=== PATIENT | male | born 1955 | race Caucasian/White ===

== ENCOUNTER → 2016-05-28 | Outpatient (CLI) | payer OTHER ==
[~2016-05-28] MED LIST: ALBU17IN INH; CYCL10TA PO; CYCL10TA3 PO; GABA-283 PO; HYDR7.5T38 PO; IBUP200T2 PO; IBUP80TA PO; IBUPPOW25 PO; LIDO1OIN2 TOP; MULTTAB23 PO; NASA0.057; OXYC1TAB23 PO; ROBA750T4 PO
== END ==
LOC: M PAIN 10:20
PROVIDERS: ATTEND Nurse Practitioner Family
DX: Z53.8 Procedure and treatment not carried out for other reasons (principal)

== ENCOUNTER → 2016-06-13 | Outpatient (CLI) | payer OTHER ==
--- NOTE | 2016-07-03 01:29 | ECWPNPC ---
PATIENT NAME: MARVIN ROSE : 1955 GENDER: MALE VISIT DATE: 06/13/2016 DISCHARGE DATE: 06/13/16 1221 VISIT LOCKED DATE TIME: PHYSICIAN: ECHO GARCIA RESOURCE: ECHO GARCIA REASON FOR APPOINTMENT 1. FOLLOW UP HISTORY OF PRESENT ILLNESS HISTORY OF PRESENT ILLNESS: PAIN THE PATIENT DESCRIBES THE PAIN... FALL RISK SCREENING: SCREENING :NO FALLS IN THE PAST YEAR TODAY'S VISIT: NOTES: RATES PAIN TODAY 8/10. PAIN CENTERD IN LOW BACK WITH RADIATION INTO BOTH LEGS. SOME PAIN INTO LEFT LEG FROM LATERAL PORTION OF CALF. IS HAVING NEW PAIN ON RIGHT SIDE... CURRENT MEDICATIONS TAKING MULTI FOR HIM TABLET ORALLY DAILY TAKING GABAPENTIN 300 MG CAPSULE 1 CAPSULE ORALLY TWO TIMES DAILY TAKING IBUPROFEN 200 MG TABLET 1 TABLET NEEDED ORALLY EVERY 8 HOURS WITH FOOD PRN PAIN TAKING OXYCODONE-ACETAMINOPHEN 5-325 MG TABLET 1 TABLET NEEDED ORALLY EVERY 4- 6 HRS MDD6 TAKING ALBUTEROL SULFATE HFA 108 (90 BASE) MCG/ACT AEROSOL SOLUTION 2 PUFFS NEEDED INHALATION EVERY 4 HRS MEDICATION LIST REVIEWED AND RECONCILED WITH THE PATIENT PAST MEDICAL HISTORY BELLS PALSY HX ALLERGIES N.K.D.A. SOCIAL HISTORY GENERAL: TOBACCO USE ARE YOU A:NONSMOKER LEARNING BARRIERS / SPECIAL NEEDS ORIENTED TO PLAN OF CARE: PATIENT, PAIN MANAGEMENT PATIENT, ORIENTED TO PLAN OF CARE: PATIENT, PAIN MANAGEMENT PATIENT. NEW PATIENT PAIN DIARY TODAY'S VISITNOTES FROM 0-10, WHAT LEVEL IS YOUR PAIN TODAY?0 PAIN CLINIC PFS, CLERGY, PUBLIC HEALTH REFERRALS PFS REFERRAL NEEDED?NO CLERGY REFERRAL NEEDED?NO PUBLIC HEALTH REFERRAL NEEDED?NO WAS THE PROVIDER NOTIFIED OF ANY PERTINENT INFO?NO PFS REFERRAL NEEDED?NO CLERGY REFERRAL NEEDED?NO PUBLIC HEALTH REFERRAL NEEDED?NO WAS THE PROVIDER NOTIFIED OF ANY PERTINENT INFO?NO REVIEW OF SYSTEMS CONSTITUTIONAL: ANY CHANGE IN YOUR MEDICAL CONDITION? NO . CHILLS NO . FEVER NO . INFECTION: DO YOU HAVE NEW INFECTIONS? NO . DO YOU HAVE HISTORY OF MRSA? NO . MUSCULOSKELETAL: ANY NEW PATTERNS OF PAIN OR NUMBNESS? YES, RIGHT LOW BACK AND DOWN THE RIGHT LEG. JUST LIKE LEFT SIDE WAS. . GASTROENTEROLOGY: ANY NEW CHANGE IN BOWEL CONTROL? NO . GENITOURINARY: ANY NEW CHANGE IN BLADDER CONTROL? NO . IS THERE A CHANCE YOU COULD BE ? NO . HEMATOLOGY/LYMPH: DO YOU TAKE ANY BLOOD THINNERS? (FOR EXAMPLE- COUMADIN, PLAVIX, AGGRENOX, PLATEL, PRADAXA, OR XARELTO) NO . WHEN WAS YOUR LAST DOSE? DATE: TIME: . NEUROLOGY: HAVE YOU FALLEN IN THE PAST 6 MONTHS? NO . ANY NEW EXTREMITY NUMBNESS OR WEAKNESS? NO . CARDIOLOGY: DO YOU HAVE A PACEMAKER OR DEFIBRILLATOR? NO . RESPIRATORY: HAVE YOU BEEN SICK IN THE PAST WEEK? WAS AT ER IN MAY 18 FOR RESPIRATORY DISTRESS FELT TO BE SECONDARY TO [place]OD[place]. . FEVER NO . FLU LIKE SYMPTOMS? NO . COUGH NO . INTEGUMENTARY: DO YOU HAVE ANY RASHES OR OPEN SORES? NO . ALLERGIC/IMMUNO: ARE YOU ALLERGIC TO SHELLFISH OR IV DYE? NO . ANY NEW ALLERGIES? NO . PSYCHIATRIC: DO YOU HAVE THOUGHTS OF HURTING YOURSELF OR SOMEONE ELSE? NO . ARE YOU ABUSED, NEGLECTED, OR IN AN UNSAFE ENVIRONMENT? NO . ENDOCRINOLOGY: ARE YOU DIABETIC? NO . OTHER: DO YOU NEED ANY PRESCRIPTIONS? NO . IF YES, PLEASE LIST: ____ . ANY NEW PROBLEMS WITH YOUR MEDICATIONS? NO . WHEN DID YOU LAST EAT? ____ . WHEN DID YOU LAST DRINK? ____ . WHAT DID YOU LAST DRINK? ____ . NAME OF PERSON DRIVING YOU HOME? ____ . DO YOU HAVE ANY OTHER QUESTIONS OR CONCERNS NO . REVIEWED BY: PROVIDER: ECHO MURRAY . VITAL SIGNS WT 200 LBS, HT 73 IN, BMI 26.38 INDEX, BP 130/72 MM HG, HR 87 /MIN, RR 18 /MIN, TEMP 97.1 F, OXYGEN SAT % 975, NA INITIALS SC 1:47, REVIEWED BY: CORRY. EXAMINATION GENERAL EXAMINATION: PSYCHALERT , ORIENTED X 3 , TALKATIVE. LOUD VOICE. LUNGS:CLEAR TO AUSCULTATION BILATERALLY. HEART:HEART RATE REGULAR. MUSCULOSKELETAL:MUSCLE STRENGTH TESTING 5/5 BILATERAL LOWER EXTREMITIES., PALPATION: POSITIVE FOR PAIN OVER L/S SPINE. POSITIVE FOR PAIN OVER L/S PARSPINALS. POINT TENDERNESS PRESENT OVER LEFT GREATER THAN RIGHT PARASPINOUS MUSCLES. SLOW TO RISE TO STANDING POSITION. POSTURE STOOPED. GAIT SLOW, NON ANTALGIC.. 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 WALK DAILY. BE SAFE,LUMBAR EPIDURAL INJECTION: YOUR PROCEDURE MATERIAL WAS PRINTEDPRINTED MATERIAL ON CYCLOBENZAPRINE GIVEN TO PATIENT. PROCEDURE CODES FA211 ESTABILISHED PATIENT [facility] FACILITY CHARGE DISPOSITION & COMMUNICATION FOLLOW UP AFTER INJECTION (REASON: CHECK AUTH FOR LESB) ELECTRONICALLY SIGNED BY MIKAELA MCMAHON ON 07/02/2016 AT 12:12 PM EST DISCLAIMER : THIS IS A VISIT SUMMARY EXTRACTED FROM THE [facility] CHART. IT IS NOT A COPY OF THE [employer] PROGRESS NOTE. MTDLars
== END ==
LOC: M PAIN 11:00
PROVIDERS: ATTEND Nurse Practitioner Family
DX: M51.26 Other intervertebral disc displacement, lumbar region (principal); M54.17 Radiculopathy, lumbosacral region; Z79.899 Other long term (current) drug therapy; Z79.891 Long term (current) use of opiate analgesic

== ENCOUNTER → 2016-07-31 | Outpatient (CLI) | payer OTHER ==
[~2016-07-31] MED LIST changes: +ISOVUE-M 300 61% 15ML VIAL (Q9967) As Ordered ONE; +LIDOCAINE 1% SDV INJ 30 ML VIAL As Ordered ONE; +diazePAM 5 MG TAB As Ordered ONE; +methylPREDNISolone SUSP 40 MG/ML (DEPO-medrol) VIAL (J1030) As Ordered ONE; +oxyCODONE 5MG TAB As Ordered ONE
--- NOTE | 2016-07-31 16:24 | REP ---
FLUOROSCOPIC GUIDED SPINAL INJECTION: The films were reviewed with Dr. Lewis. The patient has a history of low back pain and left leg pain. The portable C-ARM was provided in the OR by Dr. Cano for fluoroscopic guidance. 2 intraoperative fluoroscopic spot films were obtained for needle placement verification for lumbar epidural injection. The films are on the PACS system and are available for review. 11 seconds of fluoroscopic time was utilized for this procedure. Reviewed by DUNG Marie 07/31/2016 04:29 PEdited and Signed by Shahid Lewis MD 08/01/2016 01:15 P
--- NOTE | 2016-08-05 02:12 | ECWPNPC ---
PATIENT NAME: MARVIN ROSE : 1955 GENDER: MALE VISIT DATE: 07/31/2016 DISCHARGE DATE: 07/31/16 1443 VISIT LOCKED DATE TIME: PHYSICIAN: FELI SHELBY RESOURCE: FELI SHELBY REASON FOR APPOINTMENT 1. LESB HISTORY OF PRESENT ILLNESS HISTORY OF PRESENT ILLNESS: PAIN THE PATIENT DESCRIBES THE PAIN... FALL RISK SCREENING: SCREENING :NO FALLS IN THE PAST YEAR CURRENT MEDICATIONS TAKING MULTI FOR HIM TABLET ORALLY DAILY, NOTES: 07-30-16 1400 TAKING IBUPROFEN 200 MG TABLET 1 TABLET NEEDED ORALLY EVERY 8 HOURS WITH FOOD PRN PAIN, NOTES: 07-30-162199 TAKING ALBUTEROL SULFATE HFA 108 (90 BASE) MCG/ACT AEROSOL SOLUTION 2 PUFFS NEEDED INHALATION EVERY 4 HRS, NOTES: 07-09-16 1800 TAKING GABAPENTIN 300 MG CAPSULE 1 CAPSULE ORALLY THREE TIMES DAILY, NOTES: 07-30-162199 TAKING CYCLOBENZAPRINE HCL 10 MG TABLET 1 TABLET ORALLY THREE TIMES A DAY, NOTES: 07-30-161999 TAKING OXYCODONE-ACETAMINOPHEN 5-325 MG TABLET 1 TABLET NEEDED ORALLY EVERY 4- 6 HRS MDD6, NOTES: 07-30-162199 MEDICATION LIST REVIEWED AND RECONCILED WITH THE PATIENT PAST MEDICAL HISTORY BELLS PALSY HX ALLERGIES N.K.D.A. SURGICAL HISTORY LEFT SHOULDER REPAIR RIGHT HAND CARPAL TUNNEL AND REPAIR OF FX RIGHT KNEE SCOPE LIPOMA REMOVAL OF LOW BACK REVIEW OF SYSTEMS CONSTITUTIONAL: ANY CHANGE IN YOUR MEDICAL CONDITION? NO . CHILLS NO . FEVER NO . INFECTION: DO YOU HAVE NEW INFECTIONS? NO . DO YOU HAVE HISTORY OF MRSA? NO . MUSCULOSKELETAL: ANY NEW PATTERNS OF PAIN OR NUMBNESS? NO . GASTROENTEROLOGY: ANY NEW CHANGE IN BOWEL CONTROL? NO . GENITOURINARY: ANY NEW CHANGE IN BLADDER CONTROL? NO . IS THERE A CHANCE YOU COULD BE ? NO . HEMATOLOGY/LYMPH: DO YOU TAKE ANY BLOOD THINNERS? (FOR EXAMPLE- COUMADIN, PLAVIX, AGGRENOX, PLATEL, PRADAXA, OR XARELTO) NO . WHEN WAS YOUR LAST DOSE? DATE: TIME: . NEUROLOGY: HAVE YOU FALLEN IN THE PAST 6 MONTHS? YES . ANY NEW EXTREMITY NUMBNESS OR WEAKNESS? NO . CARDIOLOGY: DO YOU HAVE A PACEMAKER OR DEFIBRILLATOR? NO . RESPIRATORY: HAVE YOU BEEN SICK IN THE PAST WEEK? NO . FEVER NO . FLU LIKE SYMPTOMS? NO . COUGH NO . INTEGUMENTARY: DO YOU HAVE ANY RASHES OR OPEN SORES? NO . ALLERGIC/IMMUNO: ARE YOU ALLERGIC TO SHELLFISH OR IV DYE? NO . ANY NEW ALLERGIES? NO . PSYCHIATRIC: DO YOU HAVE THOUGHTS OF HURTING YOURSELF OR SOMEONE ELSE? NO . ARE YOU ABUSED, NEGLECTED, OR IN AN UNSAFE ENVIRONMENT? NO . ENDOCRINOLOGY: ARE YOU DIABETIC? NO . OTHER: DO YOU NEED ANY PRESCRIPTIONS? NO . IF YES, PLEASE LIST: ____ . ANY NEW PROBLEMS WITH YOUR MEDICATIONS? NO . WHEN DID YOU LAST EAT? ____0300 217 . WHEN DID YOU LAST DRINK? ____0300 . WHAT DID YOU LAST DRINK? ____COFFEE . NAME OF PERSON DRIVING YOU HOME? ____TOM CAPTAIN MEDICATID INSPECTOR COLD WORKING . DO YOU HAVE ANY OTHER QUESTIONS OR CONCERNS NO . REVIEWED BY: PROVIDER: . VITAL SIGNS WT 200.2 LBS, HT 73 IN, BMI 26.41 INDEX, BP 153/67 MM HG, HR 94 /MIN, RR 16 /MIN, TEMP 98.3 F, OXYGEN SAT % 95, NA INITIALS TL 1108, REVIEWED BY: KG. ASSESSMENTS INTERVERTEBRAL DISC DISORDERS WITH RADICULOPATHY, LUMBOSACRAL REGION - M51.17 (PRIMARY) PROCEDURES PRE PROCEDURE DIAGNOSIS LUMBOSACRAL RADICULOPATHY, LUMBOSACRAL DISC DISORDER WITH RADICULOPATHY, LUMBOSACRAL SPINAL STENOSIS POST PROCEDURE DIAGNOSIS LUMBOSACRAL DISC DISORDER WITH RADICULOPATHY , LUMBOSACRAL RADICULOPATHY , LUMBOSACRAL SPINAL STENOSIS PROCEDURE L5-S1 EPIDURAL STEROID INJECTION UNDER FLUOROSCOPIC GUIDANCE SURGEON DR. FELI SHELBY CLINICAL TECHNOLOGIST NONE ANESTHESIA LOCAL PRE PROCEDURE NOTE THE PATIENT HAS A HISTORY OF CHRONIC LOW BACK PAIN. I EVALUATE THE PATIENT AND REVIEWED THE CHART. I WENT OVER THE RISKS, ALTERNATIVES, AND BENEFITS ASSOCIATED WITH THIS PROCEDURE. THE PATIENT WOULD LIKE TO PROCEED AND GIVE CONSENT TO PERFORMED THE PROCEDURE. THE PATIENT DENIES UNEXPLAINABLE WEIGHT LOSS, FEVER, CHILLS, OR NEW CHANGES IN URINARY OR BOWEL CONTROL. DESCRIPTION OF PROCEDURE THE PATIENT WAS BROUGHT TO THE PROCEDURE ROOM AND PLACED IN THE PRONE POSITION. THE LUMBOSACRAL AREA WAS CLEANED WITH BETADINE SOLUTION AND DRAPED ASEPTICALLY. THE PROCEDURE WAS DONE UNDER STERILE CONDITIONS. I CHECKED LATERALITY AND THE LEVEL WHERE THE PROCEDURE WAS GOING TO BE PERFORMED WITH THE PATIENT AND THE SUPPORTING STAFF AT THE MOMENT OF THE TIME OUT IN THE PROCEDURE ROOM. UNDER FLUOROSCOPIC GUIDANCE, THE TARGET POINT WAS SELECTED AT THE INTERLAMINAR LEVEL OF L5-S1. LIDOCAINE WAS USED TO NUMB THE SKIN AND THE SUBCUTANEOUS TISSUE BELOW IT. EPIDURAL TUOHY NEEDLE, 17-GAUGE, WAS ADVANCED UNDER FLUOROSCOPIC GUIDANCE AND FOLLOWING PATIENT FEEDBACK UNTIL THE EPIDURAL SPACE WAS REACHED, 7 CM DEEP INTO THE SKIN BY THE LOSS OF RESISTANCE TECHNIQUE. ISOVUE M DYE 30%, 0.25 ML, WAS INJECTED SHOWING ADEQUATE SPREAD OF THE DYE. THEN, A SOLUTION OF 3 ML OF NORMAL SALINE WITH DEPO-MEDROL 60 MG WAS INJECTED SLOWLY FOLLOWING PATIENT FEEDBACK. THERE WAS NO EVIDENCE OF BLOOD, PARESTHESIA OR CEREBROSPINAL FLUID DURING THE PROCEDURE. THE PATIENT WAS SENT TO THE RECOVERY ROOM. THE PATIENT WAS MOVING THE EXTREMITIES AND DOING WELL. THERE WAS NO COMPLICATION DURING THE PROCEDURE. FLUOROSCOPY TIME WAS 11 SECONDS. POST PROCEDURE NOTE THE PATIENT WILL BE SEEN IN A FOLLOW UP IN THE NEXT FEW WEEKS. INSTRUCTIONS WERE GIVEN, QUESTIONS WERE ANSWERED, AND THE PATIENT EXPRESSED UNDERSTANDING AND AGREES WITH THE PLAN. I, YUE AGOSTO, DOCUMENTED THE ABOVE INFORMATION ACTING A SCRIBE FOR DR. SHELBY. I HAVE REVIEWED THE ABOVE DOCUMENT, WRITTEN BY YUE AGOSTO SCRIBE AND I VERIFY THAT IT IS [facility] FLUORO GUIDE SPINE INJECTION (PAIN)[id number] PROCEDURE CODES 90619 LUMBAR/SACRAL W/ IMAGING 6045F RADXPS IN END [id number] PXD DISPOSITION & COMMUNICATION FOLLOW UP 3 WEEKS ELECTRONICALLY SIGNED BY FELI SHELBY MD ON 08/04/2016 AT 05:51 PM EDT DISCLAIMER : THIS IS A VISIT SUMMARY EXTRACTED FROM THE [employer] CHART. IT IS NOT A COPY OF THE [employer] PROGRESS NOTE. SAMYD
== END ==
LOC: M PAIN 11:00
PROVIDERS: ATTEND Anesthesiology
DX: G89.29 Other chronic pain (principal); M51.17 Intervertebral disc disorders with radiculopathy, lumbosacral region; M48.07 Spinal stenosis, lumbosacral region; Z79.1 Long term (current) use of non-steroidal anti-inflammatories (NSAID); Z79.899 Other long term (current) drug therapy
CPT/HCPCS: 62323; J1030; Q9967

== ENCOUNTER → 2016-10-09 | Outpatient (CLI) | payer OTHER ==
[~2016-10-09] MED LIST changes: -ISOVUE-M 300 61% 15ML VIAL (Q9967) As Ordered ONE; -LIDOCAINE 1% SDV INJ 30 ML VIAL As Ordered ONE; -diazePAM 5 MG TAB As Ordered ONE; -methylPREDNISolone SUSP 40 MG/ML (DEPO-medrol) VIAL (J1030) As Ordered ONE; -oxyCODONE 5MG TAB As Ordered ONE
--- NOTE | 2016-10-29 01:03 | ECWPNPC ---
PATIENT NAME: MARVIN ROSE : 1955 GENDER: MALE VISIT DATE: 10/09/2016 DISCHARGE DATE: 10/09/16 1153 VISIT LOCKED DATE TIME: PHYSICIAN: ECHO GARCIA RESOURCE: ECHO GARCIA REASON FOR APPOINTMENT 1. BACK HISTORY OF PRESENT ILLNESS HISTORY OF PRESENT ILLNESS: PAIN THE PATIENT DESCRIBES THE PAIN... FALL RISK SCREENING: SCREENING :NO FALLS IN THE PAST YEAR TODAY'S VISIT: NOTES: RATES PAIN 8/10. STARTED JUST RECENTLY HAVING RETURN OF SHOOTING PAIN IN LEFT LEG. THIS WAS MUCH IMPROVED AFTER L5-S1 ON 07/31/16. STATES PAIN WAS 4/10 UNTIL STARTED WORK PROJECT AND PAIN HAS ICREASED FROM ACTIVITY TO 810. . CURRENT MEDICATIONS TAKING MULTI FOR HIM TABLET ORALLY DAILY, NOTES: 07-30-16 1400 TAKING IBUPROFEN 200 MG TABLET 1 TABLET NEEDED ORALLY EVERY 8 HOURS WITH FOOD PRN PAIN, NOTES: 07-30-162199 TAKING ALBUTEROL SULFATE HFA 108 (90 BASE) MCG/ACT AEROSOL SOLUTION 2 PUFFS NEEDED INHALATION EVERY 4 HRS, NOTES: 07-09-16 1800 TAKING GABAPENTIN 300 MG CAPSULE 1 CAPSULE ORALLY THREE TIMES DAILY, NOTES: 07-30-162199 TAKING CYCLOBENZAPRINE HCL 10 MG TABLET 1 TABLET ORALLY THREE TIMES A DAY, NOTES: 07-30-161999 TAKING OXYCODONE-ACETAMINOPHEN 5-325 MG TABLET 1 TABLET NEEDED ORALLY EVERY 4- 6 HRS MDD6 MEDICATION LIST REVIEWED AND RECONCILED WITH THE PATIENT PAST MEDICAL HISTORY BELLS PALSY HX ALLERGIES N.K.D.A. REVIEW OF SYSTEMS CONSTITUTIONAL: ANY CHANGE IN YOUR MEDICAL CONDITION? NO . CHILLS NO . FEVER NO . INFECTION: DO YOU HAVE NEW INFECTIONS? NO . DO YOU HAVE HISTORY OF MRSA? NO . MUSCULOSKELETAL: ANY NEW PATTERNS OF PAIN OR NUMBNESS? YES PT HADL5-S1 LESI 07/31, REPORTS PAIN A ZERO X 24 HOURS, THEN WORSENED X 4 DAYS, THEN IMPROVED AGAIN WITH RESULTS STILL BEING FELT. PT STATES HE FEELS A GENERALIZED IMPROVEMENT, WITH BETTER SLEEP, BETTER MOBILITY, BETTER TOLERANCE OF ACTIVITY. PT REPORTS HIS RIGHT SHOULDER IS A NEW PAIN . GASTROENTEROLOGY: ANY NEW CHANGE IN BOWEL CONTROL? NO . GENITOURINARY: ANY NEW CHANGE IN BLADDER CONTROL? NO . IS THERE A CHANCE YOU COULD BE ? NO . HEMATOLOGY/LYMPH: DO YOU TAKE ANY BLOOD THINNERS? (FOR EXAMPLE- COUMADIN, PLAVIX, AGGRENOX, PLATEL, PRADAXA, OR XARELTO) NO . WHEN WAS YOUR LAST DOSE? DATE: TIME: . NEUROLOGY: HAVE YOU FALLEN IN THE PAST 6 MONTHS? NO . ANY NEW EXTREMITY NUMBNESS OR WEAKNESS? NO . CARDIOLOGY: DO YOU HAVE A PACEMAKER OR DEFIBRILLATOR? NO . RESPIRATORY: HAVE YOU BEEN SICK IN THE PAST WEEK? NO . FEVER NO . FLU LIKE SYMPTOMS? NO . COUGH NO . INTEGUMENTARY: DO YOU HAVE ANY RASHES OR OPEN SORES? NO . ALLERGIC/IMMUNO: ARE YOU ALLERGIC TO SHELLFISH OR IV DYE? NO . ANY NEW ALLERGIES? NO . PSYCHIATRIC: DO YOU HAVE THOUGHTS OF HURTING YOURSELF OR SOMEONE ELSE? NO . ARE YOU ABUSED, NEGLECTED, OR IN AN UNSAFE ENVIRONMENT? NO . ENDOCRINOLOGY: ARE YOU DIABETIC? NO . OTHER: DO YOU NEED ANY PRESCRIPTIONS? NO . IF YES, PLEASE LIST: ____ . ANY NEW PROBLEMS WITH YOUR MEDICATIONS? NO . WHEN DID YOU LAST EAT? ____ . WHEN DID YOU LAST DRINK? ____ . WHAT DID YOU LAST DRINK? ____ . NAME OF PERSON DRIVING YOU HOME? ____ . DO YOU HAVE ANY OTHER QUESTIONS OR CONCERNS NO . REVIEWED BY: PROVIDER: ECHO MURRAY . VITAL SIGNS WT 192.5 LBS, HT 73 IN, BMI 25.39 INDEX, BP 144/82 MM HG, HR 71 /MIN, RR 16 /MIN, TEMP 97.5 F, OXYGEN SAT % 95%, NA INITIALS SC 11:24. EXAMINATION GENERAL EXAMINATION: PSYCHALERT , ORIENTED X 3 , TALKATIVE. LOUD VOICE. LUNGS:CLEAR TO AUSCULTATION BILATERALLY. HEART:HEART RATE REGULAR. MUSCULOSKELETAL:MUSCLE STRENGTH TESTING 5/5 BILATERAL LOWER EXTREMITIES., . POINT TENDERNESS PRESENT OVER LEFT GREATER THAN RIGHT PARASPINOUS MUSCLES. SLOW TO RISE TO STANDING POSITION. POSTURE STOOPED. GAIT SLOW, NON ANTALGIC.. ASSESSMENTS LUMBAR DISC DISPLACEMENT WITHOUT MYELOPATHY - M51.26 (PRIMARY) LUMBAR RADICULOPATHY - M54.16 SACROILIITIS - M46.1 CHRONIC PRESCRIPTION OPIATE USE - Z79.891 TREATMENT LUMBAR DISC DISPLACEMENT WITHOUT MYELOPATHY NOTES: CONTINUE CURRENT MEDS NEEDED. STRETCH AND WALK TOLERATED. PROCEDURE CODES FA211 ESTABILISHED PATIENT [facility] CHARGE DISPOSITION & COMMUNICATION FOLLOW UP 2-3 MONTHS ELECTRONICALLY SIGNED BY MIKAELA MCMAHON ON 10/28/2016 AT 01:47 PM EDT DISCLAIMER : THIS IS A VISIT SUMMARY EXTRACTED FROM THE [employer] CHART. IT IS NOT A COPY OF THE [employer] PROGRESS NOTE. CALI
== END ==
LOC: M PAIN 10:40
PROVIDERS: ATTEND Nurse Practitioner Family
DX: G89.29 Other chronic pain (principal); M51.26 Other intervertebral disc displacement, lumbar region; M54.16 Radiculopathy, lumbar region; M46.1 Sacroiliitis, not elsewhere classified; Z86.69 Personal history of other diseases of the nervous system and sense organs; Z79.899 Other long term (current) drug therapy

== ENCOUNTER → 2016-12-08 | Outpatient (CLI) | payer OTHER ==
[~2016-12-08] MED LIST changes: +NASA0.0517; -NASA0.057
--- NOTE | 2016-12-28 00:31 | ECWPNPC ---
PATIENT NAME: MARVIN ROSE : 1955 GENDER: MALE VISIT DATE: 12/08/2016 DISCHARGE DATE: 12/08/16 1105 VISIT LOCKED DATE TIME: PHYSICIAN: ECHO GARCIA RESOURCE: ECHO GARCIA HISTORY OF PRESENT ILLNESS HISTORY OF PRESENT ILLNESS: PAIN THE PATIENT DESCRIBES THE PAIN... FALL RISK SCREENING: SCREENING :NO FALLS IN THE PAST YEAR TODAY'S VISIT: NOTES: RATES PAIN TODAY 8/10. PAIN IS CENTERED OVER LOW BACK WITH RADIATION BOTH BUTTUCKS. STATES HAD INJURY WHEN HE LIFTED HIS GENERATOR. .STATES THAT HE DROPPED SEVERAL OF HIS PAIN PILLS AND HAS TAKEN SOME EXTRA DUE TO PAIN. DESCRIBES PAIN SHARP, STABBING AND SHOOTING. IS NOTING PAIN AND NUMBNESS INTO LOWER LEGS AND FEET.. CURRENT MEDICATIONS TAKING MULTI FOR HIM TABLET ORALLY DAILY TAKING IBUPROFEN 200 MG TABLET 1 TABLET NEEDED ORALLY EVERY 8 HOURS WITH FOOD PRN PAIN TAKING ALBUTEROL SULFATE HFA 108 (90 BASE) MCG/ACT AEROSOL SOLUTION 2 PUFFS NEEDED INHALATION EVERY 4 HRS TAKING GABAPENTIN 300 MG CAPSULE 1 CAPSULE ORALLY 3 TIMES PER DAY NEEDED TAKING CYCLOBENZAPRINE HCL 10 MG TABLET 1 TABLET ORALLY THREE TIMES A DAY NEEDED TAKING OXYCODONE-ACETAMINOPHEN 5-325 MG TABLET 1 TABLET NEEDED ORALLY EVERY 4- 6 HRS MDD6 TAKING VITAMIN B 12 100 MCG LOZENGE ORALLY TAKING COLACE 100 MG CAPSULE 1 CAPSULE NEEDED ORALLY ONCE A DAY TAKING ALLERGY 10 MG TABLET 1 TABLET ORALLY ONCE A DAY NEEDED MEDICATION LIST REVIEWED AND RECONCILED WITH THE PATIENT PAST MEDICAL HISTORY BELLS PALSY HX ALLERGIES N.K.D.A. REVIEW OF SYSTEMS REVIEWED BY: PROVIDER: ECHO GARCIA PRELOAD SUPERVISOR . CONSTITUTIONAL: ANY CHANGE IN YOUR MEDICAL CONDITION? NO . CHILLS NO . FEVER NO . INFECTION: DO YOU HAVE NEW INFECTIONS? NO . DO YOU HAVE HISTORY OF MRSA? NO . MUSCULOSKELETAL: ANY NEW PATTERNS OF PAIN OR NUMBNESS? NO . GASTROENTEROLOGY: ANY NEW CHANGE IN BOWEL CONTROL? NO . GENITOURINARY: ANY NEW CHANGE IN BLADDER CONTROL? NO . IS THERE A CHANCE YOU COULD BE ? NO . HEMATOLOGY/LYMPH: DO YOU TAKE ANY BLOOD THINNERS? (FOR EXAMPLE- COUMADIN, PLAVIX, AGGRENOX, PLATEL, PRADAXA, OR XARELTO) NO . WHEN WAS YOUR LAST DOSE? DATE: TIME: . NEUROLOGY: HAVE YOU FALLEN IN THE PAST 6 MONTHS? NO . ANY NEW EXTREMITY NUMBNESS OR WEAKNESS? NO . CARDIOLOGY: DO YOU HAVE A PACEMAKER OR DEFIBRILLATOR? NO . RESPIRATORY: HAVE YOU BEEN SICK IN THE PAST WEEK? NO . FEVER NO . FLU LIKE SYMPTOMS? NO . COUGH NO . INTEGUMENTARY: DO YOU HAVE ANY RASHES OR OPEN SORES? NO . ALLERGIC/IMMUNO: ARE YOU ALLERGIC TO SHELLFISH OR IV DYE? NO . ANY NEW ALLERGIES? NO . PSYCHIATRIC: DO YOU HAVE THOUGHTS OF HURTING YOURSELF OR SOMEONE ELSE? NO . ARE YOU ABUSED, NEGLECTED, OR IN AN UNSAFE ENVIRONMENT? NO . ENDOCRINOLOGY: ARE YOU DIABETIC? NO . OTHER: DO YOU NEED ANY PRESCRIPTIONS? NO . IF YES, PLEASE LIST: ____ . ANY NEW PROBLEMS WITH YOUR MEDICATIONS? NO . WHEN DID YOU LAST EAT? ____ . WHEN DID YOU LAST DRINK? ____ . WHAT DID YOU LAST DRINK? ____ . NAME OF PERSON DRIVING YOU HOME? ____ . DO YOU HAVE ANY OTHER QUESTIONS OR CONCERNS NO . VITAL SIGNS WT 195 LBS, HT 73 IN, BMI 25.72 INDEX, BP 143/83 MM HG, HR 81 /MIN, RR 16 /MIN, TEMP 98.8 F, OXYGEN SAT % 94%. EXAMINATION GENERAL EXAMINATION: PSYCHALERT , ORIENTED X 3 , TALKATIVE. LOUD VOICE. LUNGS:CLEAR TO AUSCULTATION BILATERALLY. HEART:HEART RATE REGULAR. MUSCULOSKELETAL:MUSCLE STRENGTH TESTING 5/5 BILATERAL LOWER EXTREMITIES., . POINT TENDERNESS PRESENT OVER LEFT GREATER THAN RIGHT PARASPINOUS MUSCLES. SLOW TO RISE TO STANDING POSITION. POSTURE STOOPED. GAIT SLOW, NON ANTALGIC.POINT TENDERNESS OVER LUMBAR SPINOUS PROCESSES. ASSESSMENTS LUMBAR DISC DISPLACEMENT WITHOUT MYELOPATHY - M51.26 (PRIMARY) LUMBAR RADICULOPATHY - M54.16 SACROILIITIS - M46.1 CHRONIC PRESCRIPTION OPIATE USE - Z79.891 TREATMENT LUMBAR DISC DISPLACEMENT WITHOUT MYELOPATHY NOTES: INTRALAMIAR LUMBAR EPIDURAL INJECTION. PREVENTIVE MEDICINE DISCUSSED PRE PROCEDURE CARE FOR EPIDURAL / PT EXPRESSED UNDERSTANDING OF ALL. PROCEDURE CODES FA211 ESTABILISHED PATIENT [facility] FACILITY CHARGE DISPOSITION & COMMUNICATION FOLLOW UP AFTER INJECTION (REASON: INTRALAMIAR LUMBAR EPIDURAL INJECTION) ELECTRONICALLY SIGNED BY MIKAELA MCMAHON ON 12/26/2016 AT 05:47 PM EDT DISCLAIMER : THIS IS A VISIT SUMMARY EXTRACTED FROM THE [facility] CHART. IT IS NOT A COPY OF THE [facility] PROGRESS NOTE. CALI
== END ==
LOC: M PAIN 10:40
PROVIDERS: ATTEND Nurse Practitioner Family
DX: G89.29 Other chronic pain (principal); M51.26 Other intervertebral disc displacement, lumbar region; M54.16 Radiculopathy, lumbar region; M46.1 Sacroiliitis, not elsewhere classified; Z79.899 Other long term (current) drug therapy

== ENCOUNTER → 2017-01-22 | Outpatient (CLI) | payer OTHER ==
--- NOTE | 2017-02-07 23:21 | ECWPNPC ---
PATIENT NAME: MARVIN ROSE : 1955 GENDER: MALE VISIT DATE: 01/22/2017 DISCHARGE DATE: 01/22/17 1234 VISIT LOCKED DATE TIME: PHYSICIAN: ECHO GARCIA RESOURCE: ECHO GARCIA REASON FOR APPOINTMENT 1. MEDS HISTORY OF PRESENT ILLNESS TODAY'S VISIT: NOTES: RATES PAIN TODAY 5/10. STAES IS DOING FAILY WELL. DESRIBES PAIN CONSTANT, ACHING, AND SORE. PAIN IS CENTERED OVER LOW BACK LEFT SIDE WITH RADIATION TO LEGS. DOES WELL IF HE DOES NOT DO MUCH ACTIVITY. STATES WANTS TO HOLD OFF ON INJECTION TREATMENT LONG POSSIBLE. DOES EXERCISES AND STRETCHES EVERY DAY. HISTORY OF PRESENT ILLNESS: PAIN THE PATIENT DESCRIBES THE PAIN... FALL RISK SCREENING: SCREENING :NO FALLS IN THE PAST YEAR CURRENT MEDICATIONS TAKING MULTI FOR HIM TABLET ORALLY DAILY TAKING IBUPROFEN 200 MG TABLET 1 TABLET NEEDED ORALLY EVERY 8 HOURS WITH FOOD PRN PAIN TAKING ALBUTEROL SULFATE HFA 108 (90 BASE) MCG/ACT AEROSOL SOLUTION 2 PUFFS NEEDED INHALATION EVERY 4 HRS TAKING GABAPENTIN 300 MG CAPSULE 1 CAPSULE ORALLY 3 TIMES PER DAY NEEDED TAKING CYCLOBENZAPRINE HCL 10 MG TABLET 1 TABLET ORALLY THREE TIMES A DAY NEEDED TAKING VITAMIN B 12 100 MCG LOZENGE ORALLY TAKING COLACE 100 MG CAPSULE 1 CAPSULE NEEDED ORALLY ONCE A DAY TAKING ALLERGY 10 MG TABLET 1 TABLET ORALLY ONCE A DAY NEEDED TAKING OXYCODONE-ACETAMINOPHEN 5-325 MG TABLET 1 TABLET NEEDED ORALLY EVERY 4- 6 HRS MDD6 MEDICATION LIST REVIEWED AND RECONCILED WITH THE PATIENT PAST MEDICAL HISTORY BELLS PALSY HX ALLERGIES N.K.D.A. SOCIAL HISTORY GENERAL: TOBACCO USE ARE YOU A:CURRENT SMOKER PATIENT COUNSELED ON THE DANGERS OF TOBACCO USE AND URGED TO QUIT:01/22/2017 ARE YOU INTERESTED IN QUITTING?THINKING ABOUT QUITTING COUNSELED THE PATIENT ON SMOKING CESSATION, EDUCATION [id number]/14/2017 LEARNING BARRIERS / SPECIAL NEEDS ORIENTED TO PLAN OF CARE: PATIENT, PAIN MANAGEMENT PATIENT, ORIENTED TO PLAN OF CARE: PATIENT, PAIN MANAGEMENT PATIENT. NEW PATIENT PAIN DIARY TODAY'S VISITNOTES FROM 0-10, WHAT LEVEL IS YOUR PAIN TODAY?0 PAIN CLINIC PFS, CLERGY, PUBLIC HEALTH REFERRALS PFS REFERRAL NEEDED?NO CLERGY REFERRAL NEEDED?NO PUBLIC HEALTH REFERRAL NEEDED?NO WAS THE PROVIDER NOTIFIED OF ANY PERTINENT INFO?NO HAS THE PATIENT BEEN EDUCATED REGARDING HIS/HER PLAN OF CARE?YES HAS THE PATIENT BEEN EDUCATED REGARDING PAIN, THE RISK FOR PAIN, THE IMPORTANCE OF EFFECTIVE PAIN MANAGEMENT, AND THE PAIN ASSESSMENT PROCESS?YES REVIEW OF SYSTEMS FOLLOW-UP ROS: CARDIOLOGY: NEGATIVE FOR, CHEST PAIN . GASTROENTEROLOGY: NO NAUSEA, VOMITING, DIARRHEA, CONSTIPATION, MELENA, HEMATOCHEZIA . NEUROLOGY: NEGATIVE FOR, HEADACHES . PULMONOLOGY: NEGATIVE FOR, COUGH, SHORTNESS OF BREATH . REVIEWED BY: PROVIDER: ECHO MURRAY . CONSTITUTIONAL: ANY CHANGE IN YOUR MEDICAL CONDITION? NO . CHILLS NO . FEVER NO . INFECTION: DO YOU HAVE NEW INFECTIONS? NO . DO YOU HAVE HISTORY OF MRSA? NO . MUSCULOSKELETAL: ANY NEW PATTERNS OF PAIN OR NUMBNESS? NO . GASTROENTEROLOGY: ANY NEW CHANGE IN BOWEL CONTROL? NO . GENITOURINARY: ANY NEW CHANGE IN BLADDER CONTROL? NO . IS THERE A CHANCE YOU COULD BE ? NO . HEMATOLOGY/LYMPH: DO YOU TAKE ANY BLOOD THINNERS? (FOR EXAMPLE- COUMADIN, PLAVIX, AGGRENOX, PLATEL, PRADAXA, OR XARELTO) NO . WHEN WAS YOUR LAST DOSE? DATE: TIME: . NEUROLOGY: HAVE YOU FALLEN IN THE PAST 6 MONTHS? NO . ANY NEW EXTREMITY NUMBNESS OR WEAKNESS? NO . CARDIOLOGY: DO YOU HAVE A PACEMAKER OR DEFIBRILLATOR? NO . RESPIRATORY: HAVE YOU BEEN SICK IN THE PAST WEEK? NO . FEVER NO . FLU LIKE SYMPTOMS? NO . COUGH NO . INTEGUMENTARY: DO YOU HAVE ANY RASHES OR OPEN SORES? NO . ALLERGIC/IMMUNO: ARE YOU ALLERGIC TO SHELLFISH OR IV DYE? NO . ANY NEW ALLERGIES? NO . PSYCHIATRIC: DO YOU HAVE THOUGHTS OF HURTING YOURSELF OR SOMEONE ELSE? NO . ARE YOU ABUSED, NEGLECTED, OR IN AN UNSAFE ENVIRONMENT? NO . ENDOCRINOLOGY: ARE YOU DIABETIC? NO . OTHER: DO YOU NEED ANY PRESCRIPTIONS? NO . IF YES, PLEASE LIST: ____ . ANY NEW PROBLEMS WITH YOUR MEDICATIONS? NO . WHEN DID YOU LAST EAT? ____ . WHEN DID YOU LAST DRINK? ____ . WHAT DID YOU LAST DRINK? ____ . NAME OF PERSON DRIVING YOU HOME? ____ . DO YOU HAVE ANY OTHER QUESTIONS OR CONCERNS NO . VITAL SIGNS WT 195 LBS, HT 73 IN, BMI 25.72 INDEX, BP 141/71 MM HG, HR 80 /MIN, TEMP 99.5 F. EXAMINATION GENERAL EXAMINATION: PSYCHALERT , ORIENTED X 3 , TALKATIVE. LOUD VOICE. LUNGS:CLEAR TO AUSCULTATION BILATERALLY. HEART:HEART RATE REGULAR. MUSCULOSKELETAL:MUSCLE STRENGTH TESTING 5/5 BILATERAL LOWER EXTREMITIES., . POINT TENDERNESS OVER LUMBAR SPINOUS PROCESSES MIN TENDERNESS OVER SACRAL ILIAC JOINTS. SLOW TO RISE TO STANDING POSITION. POSTURE STOOPED. GAIT SLOW, NON ANTALGIC.. ASSESSMENTS LUMBAR DISC DISPLACEMENT WITHOUT MYELOPATHY - M51.26 (PRIMARY) LUMBAR RADICULOPATHY - M54.16 SACROILIITIS - M46.1 CHRONIC PRESCRIPTION OPIATE USE - Z79.891 TREATMENT LUMBAR DISC DISPLACEMENT WITHOUT MYELOPATHY NOTES: UTOX TODAY. MAY CALL TO SCHEDULE PROCEDURE. CLINICAL NOTES: ISTOP REGISTRY REVIEWED AND DEMNOSTRATES COMPLLIANCE. (#[id number]) BRINGS IN MEDICATIONS WHICH IS APPROPRIATE FOR WHAT WAS DISPENSED. RECENT URINE TOXICOLOGY REVIEWED. NO UNAUTHORIZED MEDICATIONS. NO ILLICIT SUBSTANCES AND PRESCRIBED MEDICATIONS WERE PRESENT. PROCEDURE CODES FA211 ESTABILISHED PATIENT [facility] CHARGE DISPOSITION & COMMUNICATION FOLLOW UP 2-3 MONTHS (REASON: BACK PAIN) ELECTRONICALLY SIGNED BY MIKAELA MCMAHON ON 02/07/2017 AT 09:13 PM EDT DISCLAIMER : THIS IS A VISIT SUMMARY EXTRACTED FROM THE [employer] CHART. IT IS NOT A COPY OF THE [employer] PROGRESS NOTE. CALI
== END ==
LOC: M PAIN 10:45
PROVIDERS: ATTEND Nurse Practitioner Family
DX: G89.29 Other chronic pain (principal); M51.26 Other intervertebral disc displacement, lumbar region; M54.16 Radiculopathy, lumbar region; M46.1 Sacroiliitis, not elsewhere classified; F17.200 Nicotine dependence, unspecified, uncomplicated; Z79.1 Long term (current) use of non-steroidal anti-inflammatories (NSAID); Z79.899 Other long term (current) drug therapy

== ENCOUNTER → 2017-03-31 | Outpatient (CLI) | payer OTHER ==
[~2017-03-31] MED LIST changes: +ISOVUE-M 300 61% 15ML VIAL (Q9967) As Ordered ONE; +LIDOCAINE 1% SDV INJ 30 ML VIAL As Ordered ONE; +diazePAM 5 MG TAB As Ordered ONE; +diphenhydrAMINE 25 MG CAP As Ordered ONE; +methylPREDNISolone SUSP 40 MG/ML (DEPO-medrol) VIAL (J1030) As Ordered ONE; +oxyCODONE 5MG TAB As Ordered ONE
--- NOTE | 2017-03-31 15:47 | REP ---
Partial lumbar spine series: Three views . History: Injection procedure for pain. Nine seconds of fluoroscopy time is reported. Findings: A sequence of three fluoroscopically obtained last image hold procedural spot radiographs of the lumbar spine document needle position and contrast injection associated with injection procedure. Signed by Rajesh Gaming MD 03/31/2017 03:38 P
--- NOTE | 2017-04-07 00:21 | ECWPNPC ---
PATIENT NAME: MARVIN ROSE : 1955 GENDER: MALE VISIT DATE: 03/31/2017 DISCHARGE DATE: 03/31/17 1346 VISIT LOCKED DATE TIME: PHYSICIAN: FELI SHELBY RESOURCE: FELI SHELBY REASON FOR APPOINTMENT 1. INTRALAMIAR LUMBAR EPIDURAL INJECTION HISTORY OF PRESENT ILLNESS FALL RISK SCREENING: SCREENING :NO FALLS IN THE PAST YEAR PAIN SCREENING: PATIENT HAS A COMPLAINT OF ACUTE OR CHRONIC PAIN :YES CURRENT MEDICATIONS TAKING MULTI FOR HIM TABLET ORALLY DAILY, NOTES: 03/31 3AM TAKING IBUPROFEN 200 MG TABLET 1 TABLET NEEDED ORALLY EVERY 8 HOURS WITH FOOD PRN PAIN, NOTES: 03/31 3AM TAKING ALBUTEROL SULFATE HFA 108 (90 BASE) MCG/ACT AEROSOL SOLUTION 2 PUFFS NEEDED INHALATION EVERY 4 HRS, NOTES: 4 DAYS TAKING GABAPENTIN 300 MG CAPSULE 1 CAPSULE ORALLY 3 TIMES PER DAY NEEDED, NOTES: 1 MONTH AGO TAKING CYCLOBENZAPRINE HCL 10 MG TABLET 1 TABLET ORALLY THREE TIMES A DAY NEEDED, NOTES: 1 MONTH AGO TAKING VITAMIN B 12 100 MCG LOZENGE ORALLY , NOTES: 03/31 3AM TAKING COLACE 100 MG CAPSULE 1 CAPSULE NEEDED ORALLY ONCE A DAY, NOTES: 03/31 3AM TAKING ALLERGY 10 MG TABLET 1 TABLET ORALLY ONCE A DAY NEEDED, NOTES: 1 MONTH AGO TAKING OXYCODONE-ACETAMINOPHEN 5-325 MG TABLET 1 TABLET NEEDED ORALLY EVERY 4- 6 HRS MDD6, NOTES: 03/31 3AM MEDICATION LIST REVIEWED AND RECONCILED WITH THE PATIENT PAST MEDICAL HISTORY BELLS PALSY HX ALLERGIES N.K.D.A. SURGICAL HISTORY LEFT SHOULDER REPAIR RIGHT HAND CARPAL TUNNEL AND REPAIR OF FX RIGHT KNEE SCOPE LIPOMA REMOVAL OF LOW BACK SOCIAL HISTORY GENERAL: TOBACCO USE ARE YOU A:CURRENT SMOKER PATIENT COUNSELED ON THE DANGERS OF TOBACCO USE AND URGED TO QUIT:01/22/2017 ARE YOU INTERESTED IN QUITTING?THINKING ABOUT QUITTING COUNSELED THE PATIENT ON SMOKING CESSATION, EDUCATION [id number]/14/2017 CAFFEINE CAFFEINE USE?YES HOW OFTEN AND HOW MUCH? 1-2 CUPS PER DAY LEARNING BARRIERS / SPECIAL NEEDS ORIENTED TO PLAN OF CARE: PATIENT, PAIN MANAGEMENT PATIENT, ORIENTED TO PLAN OF CARE: PATIENT, PAIN MANAGEMENT PATIENT. NEW PATIENT PAIN DIARY TODAY'S VISIT NOTES, FROM 0-10, WHAT LEVEL IS YOUR PAIN TODAY? 0. PAIN CLINIC PFS, CLERGY, PUBLIC HEALTH REFERRALS PFS REFERRAL NEEDED?NO CLERGY REFERRAL NEEDED?NO PUBLIC HEALTH REFERRAL NEEDED?NO WAS THE PROVIDER NOTIFIED OF ANY PERTINENT INFO?YES HAS THE PATIENT BEEN EDUCATED REGARDING HIS/HER PLAN OF CARE?YES PLEASE DOCUMENT ANY ADDTIONAL DETAILS. LUMBAR EPIDURAL HAS THE PATIENT BEEN EDUCATED REGARDING PAIN, THE RISK FOR PAIN, THE IMPORTANCE OF EFFECTIVE PAIN MANAGEMENT, AND THE PAIN ASSESSMENT PROCESS?YES REVIEWED BY: KETAN. HOSPITALIZATION/MAJOR DIAGNOSTIC PROCEDURE NO HOSPITALIZATION HISTORY. REVIEW OF SYSTEMS REVIEWED BY: PROVIDER: . CONSTITUTIONAL: ANY CHANGE IN YOUR MEDICAL CONDITION? NO . CHILLS NO . FEVER NO . INFECTION: DO YOU HAVE NEW INFECTIONS? NO . DO YOU HAVE HISTORY OF MRSA? NO . MUSCULOSKELETAL: ANY NEW PATTERNS OF PAIN OR NUMBNESS? NO . SYTEMIC LUPUS NO . GASTROENTEROLOGY: ANY NEW CHANGE IN BOWEL CONTROL? NO . BARRETTS ESOPHAGUS NO . CIRRHOSIS NO . HEPATITIS NO . LIVER FAILURE NO . ACID REFLUX NO . UNEXPLAINED WEIGHT LOSS NO . GENITOURINARY: ANY NEW CHANGE IN BLADDER CONTROL? NO . IS THERE A CHANCE YOU COULD BE ? NO . HEMATOLOGY/LYMPH: DO YOU TAKE ANY BLOOD THINNERS? (FOR EXAMPLE- COUMADIN, PLAVIX, AGGRENOX, PLATEL, PRADAXA, OR XARELTO) NO . WHEN WAS YOUR LAST DOSE? DATE: TIME: . LOW PLATELET COUNT NO . SICKLE CELL DISEASE NO . VON WILLIEBRANDS NO . FACTOR V LEIDEN NO . THALLASEMIA NO . ANEMIA NO . EASY BRUISING NO . NEUROLOGY: HAVE YOU FALLEN IN THE PAST 6 MONTHS? NO . ANY NEW EXTREMITY NUMBNESS OR WEAKNESS? NO . HEAD INJURY NO . DEMENTIA NO . CEREBRAL PALSY NO . MULTIPLE SCLEROSIS NO . DIZZINESS NO . HEADACHE NO . STROKES NO . VERTIGO NO . CARDIOLOGY: DO YOU HAVE A PACEMAKER OR DEFIBRILLATOR? NO . ANGINA NO . HEART ATTACK NO . HEART SURGERY NO . CONGESTIVE HEART FAILURE/FLUID OVERLOAD NO . CHEST PAIN NO . HIGH BLOOD PRESSURE NO . IRREGULAR HEART BEAT NO . RESPIRATORY: HAVE YOU BEEN SICK IN THE PAST WEEK? NO . FEVER NO . FLU LIKE SYMPTOMS? NO . CPAP NO . BYPAP NO . ASTHMA NO . EMPHYSEMA NO . CHRONIC LUNG DISEASES NO . SHORTNESS OF BREATH ON EXERTION NO . COUGH NO . SNORING NO . INTEGUMENTARY: DO YOU HAVE ANY RASHES OR OPEN SORES? NO . ALLERGIC/IMMUNO: ARE YOU ALLERGIC TO SHELLFISH OR IV DYE? NO . ANY NEW ALLERGIES? NO . PSYCHIATRIC: DO YOU HAVE THOUGHTS OF HURTING YOURSELF OR SOMEONE ELSE? NO . ARE YOU ABUSED, NEGLECTED, OR IN AN UNSAFE ENVIRONMENT? NO . ENDOCRINOLOGY: ARE YOU DIABETIC? NO . THYROID DISORDER NO . OTHER: DO YOU NEED ANY PRESCRIPTIONS? YES, OXYCODONE . IF YES, PLEASE LIST: ____ . ANY NEW PROBLEMS WITH YOUR MEDICATIONS? NO . WHEN DID YOU LAST EAT? 03/31 4AM . WHEN DID YOU LAST DRINK? 03/31 4AM . WHAT DID YOU LAST DRINK? COFFEE . NAME OF PERSON DRIVING YOU HOME? DAVIDA . DO YOU HAVE ANY OTHER QUESTIONS OR CONCERNS PT STATES THAT HE IS A CURRENT SMOKER, REFUSING ANY SMOKING CESSATION COUSELING AT THIS TIME . VITAL SIGNS WT 195.0 LBS, HT 73 IN, BMI 25.72 INDEX, BP 148/75 MM HG, HR 85 /MIN, RR 16 /MIN, TEMP 98.2 F, OXYGEN SAT % 96%, SAFE IN ENV? (Y/N) Y, NA INITIALS TL 1114, REVIEWED BY: KETAN. ASSESSMENTS INTERVERTEBRAL DISC DISORDER WITH RADICULOPATHY OF LUMBAR REGION - M51.16 (PRIMARY) PROCEDURES PRE PROCEDURE DIAGNOSIS LUMBAR DISC DISORDER WITH RADICULOPATHY POST PROCEDURE DIAGNOSIS LUMBAR DISC DISORDER WITH RADICULOPATHY PROCEDURE LUMBAR EPIDURAL STEROID INJECTION UNDER FLUOROSCOPIC GUIDANCE SURGEON DR. FELI SHELBY ICER AIR CONDITIONING NONE ANESTHESIA LOCAL PRE PROCEDURE NOTE THE PATIENT HAS A HISTORY OF CHRONIC LOW BACK PAIN. I EVALUATE THE PATIENT AND REVIEWED THE CHART. I WENT OVER THE RISKS, ALTERNATIVES, AND BENEFITS ASSOCIATED WITH THIS PROCEDURE. THE PATIENT WOULD LIKE TO PROCEED AND GIVE CONSENT TO PERFORMED THE PROCEDURE. THE PATIENT DENIES UNEXPLAINABLE WEIGHT LOSS, FEVER, CHILLS, OR NEW CHANGES IN URINARY OR BOWEL CONTROL. DESCRIPTION OF PROCEDURE THE PATIENT WAS BROUGHT TO THE PROCEDURE ROOM AND PLACED IN THE PRONE POSITION. THE LUMBOSACRAL AREA WAS CLEANED WITH BETADINE SOLUTION AND DRAPED ASEPTICALLY. THE PROCEDURE WAS DONE UNDER STERILE CONDITIONS. I CHECKED LATERALITY AND THE LEVEL WHERE THE PROCEDURE WAS GOING TO BE PERFORMED WITH THE PATIENT AND THE SUPPORTING STAFF AT THE MOMENT OF THE TIME OUT IN THE PROCEDURE ROOM. UNDER FLUOROSCOPIC GUIDANCE, THE TARGET POINT WAS SELECTED AT THE INTERLAMINAR LEVEL OF L4-L5. LIDOCAINE WAS USED TO NUMB THE SKIN AND THE SUBCUTANEOUS TISSUE BELOW IT. EPIDURAL TUOHY NEEDLE, 17-GAUGE, WAS ADVANCED UNDER FLUOROSCOPIC GUIDANCE AND FOLLOWING PATIENT FEEDBACK UNTIL THE EPIDURAL SPACE WAS REACHED, 7 CM DEEP INTO THE SKIN BY THE LOSS OF RESISTANCE TECHNIQUE. ISOVUE M DYE 30%, 0.25 ML, WAS INJECTED SHOWING ADEQUATE SPREAD OF THE DYE. THEN, A SOLUTION OF 3 ML OF NORMAL SALINE WITH DEPO-MEDROL 60 MG WAS INJECTED SLOWLY FOLLOWING PATIENT FEEDBACK. THERE WAS NO EVIDENCE OF BLOOD, PARESTHESIA OR CEREBROSPINAL FLUID DURING THE PROCEDURE. THE PATIENT WAS SENT TO THE RECOVERY ROOM. THE PATIENT WAS MOVING THE EXTREMITIES AND DOING WELL. THERE WAS NO COMPLICATION DURING THE PROCEDURE. FLUOROSCOPY TIME WAS 9 SECONDS. POST PROCEDURE NOTE THE PATIENT WILL BE SEEN IN A FOLLOW UP IN THE NEXT FEW WEEKS. INSTRUCTIONS WERE GIVEN, QUESTIONS WERE ANSWERED, AND THE PATIENT EXPRESSED UNDERSTANDING AND AGREES WITH THE PLAN. I, PARRIS OLIVAS, DOCUMENTED THE ABOVE INFORMATION ACTING A SCRIBE FOR DR. SHELBY. I HAVE REVIEWED THE ABOVE DOCUMENT, WRITTEN BY PARRIS LUNDBERG AND I VERIFY THAT IT IS ACCURATE DIAGNOSTIC IMAGING [facility] FLUORO GUIDE SPINE INJECTION (PAIN)[id number] PROCEDURE CODES 44527 LUMBAR/SACRAL W/ IMAGING 6045F RADXPS IN END [id number] PXD DISPOSITION & COMMUNICATION FOLLOW UP 2 WEEKS ELECTRONICALLY SIGNED BY FELI SHELBY MD ON 04/06/2017 AT 02:19 PM EST DISCLAIMER : THIS IS A VISIT SUMMARY EXTRACTED FROM THE [employer] CHART. IT IS NOT A COPY OF THE [employer] PROGRESS NOTE. MTDD
== END ==
LOC: M PAIN 11:00
PROVIDERS: ATTEND Anesthesiology
DX: G89.29 Other chronic pain (principal); M51.16 Intervertebral disc disorders with radiculopathy, lumbar region; F17.200 Nicotine dependence, unspecified, uncomplicated; Z79.1 Long term (current) use of non-steroidal anti-inflammatories (NSAID); Z79.891 Long term (current) use of opiate analgesic; Z79.899 Other long term (current) drug therapy
CPT/HCPCS: 62323; J1030; Q9967

== ENCOUNTER → 2017-04-09 | Outpatient (CLI) | payer OTHER ==
[~2017-04-09] MED LIST changes: -ISOVUE-M 300 61% 15ML VIAL (Q9967) As Ordered ONE; -LIDOCAINE 1% SDV INJ 30 ML VIAL As Ordered ONE; -diazePAM 5 MG TAB As Ordered ONE; -diphenhydrAMINE 25 MG CAP As Ordered ONE; -methylPREDNISolone SUSP 40 MG/ML (DEPO-medrol) VIAL (J1030) As Ordered ONE; -oxyCODONE 5MG TAB As Ordered ONE
== END ==
LOC: M PAIN 10:30
PROVIDERS: ATTEND Nurse Practitioner Family
DX: M51.26 Other intervertebral disc displacement, lumbar region (principal); M54.16 Radiculopathy, lumbar region; M46.1 Sacroiliitis, not elsewhere classified; Z79.891 Long term (current) use of opiate analgesic; Z79.899 Other long term (current) drug therapy; F17.210 Nicotine dependence, cigarettes, uncomplicated

== ENCOUNTER → 2018-02-25 | Outpatient (CLI) | payer OTHER | LOC: M PAIN 13:00 | DX: M51.26 Other intervertebral disc displacement, lumbar region (principal); M54.16 Radiculopathy, lumbar region; Z72.0 Tobacco use; Z79.899 Other long term (current) drug therapy; Z86.69 Personal history of other diseases of the nervous system and sense organs | CPT/HCPCS: G0463 ==

== ENCOUNTER → 2018-09-03 | Outpatient (CLI) | payer OTHER ==
[~2018-09-03] MED LIST changes: -GABA-283 PO; +GABA-845 PO
--- NOTE | 2018-09-22 01:42 | ECWPNPC ---
PATIENT NAME: MARVIN ROSE : 1955 GENDER: MALE VISIT DATE: 09/03/2018 DISCHARGE DATE: 09/03/18 1204 VISIT LOCKED DATE TIME: PHYSICIAN: ANYA BLOUNT RESOURCE: ANYA BLOUNT REASON FOR APPOINTMENT 1. BACK PAIN /SW HISTORY OF PRESENT ILLNESS HISTORY OF PRESENT ILLNESS: HERE FOR F/U OF CHRONIC LOW BACK PAIN AND LRFT LEG PAIN.HAS BEEN FOLLOWING JACOB GARCIA FABRICATION WELDER AT OUR PAIN [facility]ENTER FOR SEVERAL YEARS .PAIN IS DESCRIBED CONSTANT,BURNING AND STABBING.RATING PAIN VAS 5/10. PAIN THE PATIENT DESCRIBES THE PAIN... FALL RISK SCREENING: SCREENING :NO FALLS REPORTED IN THE LAST YEAR CURRENT MEDICATIONS TAKING MULTI FOR HIM TABLET ORALLY DAILY TAKING IBUPROFEN 200 MG TABLET 3 TABLET NEEDED ORALLY EVERY 6 HOURS WITH FOOD PRN PAIN TAKING ALBUTEROL SULFATE HFA 108 (90 BASE) MCG/ACT AEROSOL SOLUTION 2 PUFFS NEEDED INHALATION EVERY 4 HRS TAKING COLACE 100 MG CAPSULE 1 CAPSULE NEEDED ORALLY ONCE A DAY TAKING CYCLOBENZAPRINE HCL 10 MG TABLET 1 TABLET ORALLY THREE TIMES A DAY NEEDED TAKING AMITRIPTYLINE HCL 10 MG TABLET 1 TABLET ORALLY ONCE A DAY TAKING HYDROCODONE-ACETAMINOPHEN 5-325 MG TABLET 1 TABLET NEEDED ORALLY TWICE DAILY PRN PAIN MDD=2 TAKING ATORVASTATIN CALCIUM 20 MG TABLET 1 TABLET ORALLY ONCE A DAY TAKING GABAPENTIN 100 MG CAPSULE 1 CAPSULE ORALLY THREE TIMES A DAY NOT-TAKING VITAMIN B 12 100 MCG LOZENGE ORALLY NOT-TAKING ALLERGY 10 MG TABLET 1 TABLET ORALLY ONCE A DAY NEEDED MEDICATION LIST REVIEWED AND RECONCILED WITH THE PATIENT PAST MEDICAL HISTORY BELLS PALSY HX CHRONIC PAIN ALLERGIES N.K.D.A. SURGICAL HISTORY LEFT SHOULDER REPAIR RIGHT HAND CARPAL TUNNEL AND REPAIR OF FX RIGHT KNEE SCOPE LIPOMA REMOVAL OF LOW BACK FAMILY HISTORY FATHER: DIAGNOSED WITH HYPERTENSION SOCIAL HISTORY GENERAL: TOBACCO USE ARE YOU A:CURRENT SMOKER ARE YOU INTERESTED IN QUITTING?THINKING ABOUT QUITTING COUNSELED THE PATIENT ON SMOKING CESSATION, EDUCATION [id number]/30/2017 PATIENT COUNSELED ON THE DANGERS OF TOBACCO USE AND URGED TO QUIT:04/09/2017 PAIN CLINIC PFS, CLERGY, PUBLIC HEALTH REFERRALS PFS REFERRAL NEEDED?NO CLERGY REFERRAL NEEDED?NO PUBLIC HEALTH REFERRAL NEEDED?NO WAS THE PROVIDER NOTIFIED OF ANY PERTINENT INFO?YES HAS THE PATIENT BEEN EDUCATED REGARDING HIS/HER PLAN OF CARE?YES PLEASE DOCUMENT ANY ADDTIONAL DETAILS. LUMBAR EPIDURAL HAS THE PATIENT BEEN EDUCATED REGARDING PAIN, THE RISK FOR PAIN, THE IMPORTANCE OF EFFECTIVE PAIN MANAGEMENT, AND THE PAIN ASSESSMENT PROCESS?YES LATEX QUESTIONNAIRE LATEX ALLERGY : HAVE YOU EVER DEVELOPED ANY TYPE OF REACTION AFTER HANDLING LATEX PRODUCTS SUCH RUBBER GLOVES, CONDOMS, DIAPHRAGMS, BALLOONS, SOCKS, OR UNDERWEAR?NO LATEX ALLERGY : HAVE YOU EVER DEVELOPED ANY TYPE OF REACTION DURING OR AFTER DENTAL APPOINTMENT, VAGINAL/RECTAL EXAMINATION, SURGICAL PROCEDURE, OR ANY OTHER EXPOSURE?NO LATEX RISK : HAVE YOU EVER HAD ANY DIFFICULTY BREATHING OR HIVES AFTER EATING OR HANDLING ANY FRUITS, OR VEGETABLES; SUCH KIWI, BANANAS, STONE FRUITS, OR CHESTNUTSNO LATEX RISK : DO YOU HAVE A PREVIOUS PERSONAL HISTORY OF MORE THAN NINE SURGERIES, SPINA BIFIDA, OR REPEATED CATHERTIZATIONS? NO LATEX RISK : ARE YOU FREQUENTLY EXPOSED TO LATEX PRODUCTS IN YOUR OCCUPATION?NO DATE ASKED : 09/03/2018 CAFFEINE CAFFEINE USE?YES HOW OFTEN AND HOW MUCH? 1-2 CUPS PER DAY ADVANCE DIRECTIVE HEALTH CARE PROXY? NO DECLINES INFORMATION O HCP, DO YOU HAVE A DNR? NO, LIVING WILL? NO, POWER OF COKE DRAWER? NO. GNOSTICIST GNOSTICIST NO TAOISM BELIEFS THAT WOULD IMPACT HEALTH CARE. LANGUAGE LANGUAGES SPOKEN:MALTESE NEW PATIENT PAIN DIARY TODAY'S VISITNOTES FROM 0-10, WHAT LEVEL IS YOUR PAIN TODAY?6 ALCOHOL SCREENING DID YOU HAVE A DRINK CONTAINING ALCOHOL IN THE PAST YEAR?YES HOW OFTEN DID YOU HAVE A DRINK CONTAINING ALCOHOL IN THE PAST YEAR?TWO TO FOUR TIMES A MONTH (2 POINTS) HOW MANY DRINKS DID YOU HAVE ON A TYPICAL DAY WHEN YOU WERE DRINKING IN THE PAST YEAR?5 OR 6 (2 POINTS) POINTS4 INTERPRETATIONPOSITIVE RECREATIONAL DRUG USE DRUG USE?NO LEARNING BARRIERS / SPECIAL NEEDS BARRIERS TO LEARNING?NO HEARING IMPAIRED?NO VISION IMPAIRED?YES :CORRECTIVE LENSES COGNITIVELY IMPAIRED?NO READINESS TO LEARN?YES REVIEWED WITH PT 02/25/18 8585 BVREVIEWED WITH PT 09/03/18 BV. HOSPITALIZATION/MAJOR DIAGNOSTIC PROCEDURE NO HOSPITALIZATION HISTORY. REVIEW OF SYSTEMS REVIEWED BY: PROVIDER: ANYA MURRAY . CONSTITUTIONAL: ANY CHANGE IN YOUR MEDICAL CONDITION? NO . CHILLS NO . FEVER NO . INFECTION: DO YOU HAVE NEW INFECTIONS? NO . DO YOU HAVE HISTORY OF MRSA? NO . MUSCULOSKELETAL: ANY NEW PATTERNS OF PAIN OR NUMBNESS? NO . GASTROENTEROLOGY: ANY NEW CHANGE IN BOWEL CONTROL? NO . GENITOURINARY: ANY NEW CHANGE IN BLADDER CONTROL? NO . IS THERE A CHANCE YOU COULD BE ? NO . HEMATOLOGY/LYMPH: DO YOU TAKE ANY BLOOD THINNERS? (FOR EXAMPLE- COUMADIN, PLAVIX, AGGRENOX, PLATEL, PRADAXA, OR XARELTO) NO . WHEN WAS YOUR LAST DOSE? DATE: TIME: . NEUROLOGY: HAVE YOU FALLEN IN THE PAST 12 MONTHS? NO . ANY NEW EXTREMITY NUMBNESS OR WEAKNESS? NO . CARDIOLOGY: DO YOU HAVE A PACEMAKER OR DEFIBRILLATOR? NO . RESPIRATORY: HAVE YOU BEEN SICK IN THE PAST WEEK? NO . FEVER NO . FLU LIKE SYMPTOMS? NO . COUGH NO . INTEGUMENTARY: DO YOU HAVE ANY RASHES OR OPEN SORES? NO . ALLERGIC/IMMUNO: ARE YOU ALLERGIC TO IV DYE? NO . ANY NEW ALLERGIES? NO . PSYCHIATRIC: DO YOU HAVE THOUGHTS OF HURTING YOURSELF OR SOMEONE ELSE? NO . ARE YOU ABUSED, NEGLECTED, OR IN AN UNSAFE ENVIRONMENT? NO . ENDOCRINOLOGY: ARE YOU DIABETIC? NO . OTHER: DO YOU NEED ANY PRESCRIPTIONS? NO . IF YES, PLEASE LIST: ____ . ANY NEW PROBLEMS WITH YOUR MEDICATIONS? NO . WHEN DID YOU LAST EAT? ____ . WHEN DID YOU LAST DRINK? ____ . WHAT DID YOU LAST DRINK? ____ . NAME OF PERSON DRIVING YOU HOME? ____ . DO YOU HAVE ANY OTHER QUESTIONS OR CONCERNS NO . VITAL SIGNS WT 198.4 LBS, HT 73 IN, BMI 26.17 INDEX, BP 141/79 MM HG, HR 71 /MIN, RR 18 /MIN, TEMP 98.4 F, OXYGEN SAT % 98%, NA INITIALS AW 1119, REVIEWED BY: BV. EXAMINATION GENERAL EXAMINATION: GENERAL APPEARANCE: AWAKE,ALERT ,PLEAASANT . PSYCH AFFECT NORMAL . LUNGS: LUNG FERRARA ARE CLEAR TO AUSCULTATION BILATERALLY. GOOD MOVEMENT OF AIR . HEART: S1, S2 IN A REGULAR RATE AND RHYTHM. NO SIGNIFICANT MURMURS, RUBS OR GALLOPS NOTED . LUMBAR SACRAL SPINE PALPATION: + FOR PAIN OVER L/S SPINE. + FOR PAIN OVER L/S PARASPINALS. NEUROLOGIC EXAM: NORMAL SENSATION LIGHT TOUCH BILAT. LOWER EXTREMITIES. ASSESSMENTS SACROILIITIS - M46.1 (PRIMARY) TREATMENT SACROILIITIS INCREASE HYDROCODONE-ACETAMINOPHEN TABLET, 5-325 MG, 1 TABLET NEEDED, ORALLY, Q6H PRN MDD4, 30 DAY(S), 120, REFILLS 0 NOTES: ISTOP REGISTRY REVIEWED AND DEMONSTRATES COMPLLIANCE. BRINGS IN MEDICATIONS WHICH IS APPROPRIATE FOR WHAT WAS DISPENSED. RECENT URINE TOXICOLOGY REVIEWED. NO UNAUTHORIZED MEDICATIONS. NO ILLICIT SUBSTANCES AND PRESCRIBED MEDICATIONS WERE PRESENT. , RISKS AND BENEFITS OF NARCOTIC/OPIOD MEDICATIONS WERE REVIEWED WITH PATIENT - THIS INCLUDES BUT IS NOT LIMITED TO RISK OF DEPENDANCE/DEVELOPMENT OF ADDICTION, MOOD DISTURBANCE AND DEPRESSION, OSTEOPOROSIS, HORMONAL AND LABIDAL CHANGES, RESPIRATORY DEPRESSION AND . PATIENT IS ADVISED NOT TO DRIVE OR DRINK ALCOHOL WHILE ON THESE MEDICATIONS, [facility] NARCOTIC AGREEMENT WAS UPDATED REVIEWED AND SIGNED TODAY BY THE PATIENT. SEE ATTACHED DOCUMENT FOR FULL DETAILS; SPECIFIC ISSUES WERE REVIEWED: 1) KEEP PAIN MEDS IN THEIR ORIGINAL BOTTLES AND ANY WEEKLY PLANNERS ARE TO BE BROUGHT TO THE PAIN CENTER AT EVERY VISIT. 2) THE PATIENT IS NOT TO INCREASE DOSING OR TIMING OF THEIR PAIN MEDICATION WITHOUT SPECIFIC DIRECTION OF THEIR PAIN CENTERPROVIDER (NOT ER OR OTHER PROVIDERS). 3) ALL PAIN MEDS ARE TO BE KEPT SECURED, IN A LOCKED BOX. 4) NO PAIN MEDS ARE TO BE SHARED WITH ANY OTHER PERSON FOR ANY REASON. 5) NO PAIN MEDS MAY BE TAKEN FROM ANY FRIENDS OR RELATIVES FOR ANY REASON 6) NO MEDS OR SUBSTANCES WHICH ARE NOT LEGAL ARE TO BE USED- NO MARIJUANA, NO COCAINE, AMPHETAMINES, HEROIN, OR OTHERS ARE EVER TO BE USED. 7)URINE TESTING IS DONE TO ACCOUNT FOR MEDS AND SUBSTANCES BEING TAKEN AND WILL BE DONE RANDOMLY. PROCEDURE CODES FA211 ESTABILISHED PATIENT [facility] CHARGE DISPOSITION & COMMUNICATION FOLLOW UP 6 WEEKS ELECTRONICALLY SIGNED BY TERRI WHEATLEY ON 09/20/2018 AT 05:33 PM EDT DISCLAIMER : THIS IS A VISIT SUMMARY EXTRACTED FROM THE [employer] CHART. IT IS NOT A COPY OF THE [employer] PROGRESS NOTE. CALI
== END ==
LOC: M PAIN 10:30
PROVIDERS: ATTEND Nurse Practitioner Family
DX: M46.1 Sacroiliitis, not elsewhere classified (principal); G89.29 Other chronic pain; F17.210 Nicotine dependence, cigarettes, uncomplicated; Z79.899 Other long term (current) drug therapy

== ENCOUNTER → 2018-12-10 | Outpatient (CLI) | payer OTHER ==
--- NOTE | 2018-12-14 01:01 | ECWPNPC ---
PATIENT NAME: MARVIN ROSE : 1955 GENDER: MALE VISIT DATE: 12/10/2018 DISCHARGE DATE: 12/10/18 1028 VISIT LOCKED DATE TIME: PHYSICIAN: XIOMARA VAN RESOURCE: XIOMARA VAN REASON FOR APPOINTMENT 1. BACK PAIN HISTORY OF PRESENT ILLNESS HISTORY OF PRESENT ILLNESS: PAIN THE PATIENT DESCRIBES THE PAIN... 63 YEAR OLD MALE IN FOR CHRONIC PAIN FOLLOW UP. HE RATES HIS PAIN AT A 6/10 CURRENTLY AND DESCRIBES IT BURNING, TENDER, SHARP, AND STABBING. HE DENIES MED SIDE EFFECTS. FALL RISK SCREENING: SCREENING :NO FALLS REPORTED IN THE LAST YEAR CURRENT MEDICATIONS TAKING MULTI FOR HIM TABLET ORALLY DAILY TAKING IBUPROFEN 200 MG TABLET 3 TABLET NEEDED ORALLY EVERY 6 HOURS WITH FOOD PRN PAIN TAKING ALBUTEROL SULFATE HFA 108 (90 BASE) MCG/ACT AEROSOL SOLUTION 2 PUFFS NEEDED INHALATION EVERY 4 HRS TAKING COLACE 100 MG CAPSULE 1 CAPSULE NEEDED ORALLY ONCE A DAY TAKING CYCLOBENZAPRINE HCL 10 MG TABLET 1 TABLET ORALLY THREE TIMES A DAY NEEDED TAKING AMITRIPTYLINE HCL 10 MG TABLET 1 TABLET ORALLY ONCE A DAY TAKING ATORVASTATIN CALCIUM 20 MG TABLET 1 TABLET ORALLY ONCE A DAY TAKING GABAPENTIN 100 MG CAPSULE 1 CAPSULE ORALLY THREE TIMES A DAY TAKING HYDROCODONE-ACETAMINOPHEN 5-325 MG TABLET 1 TABLET NEEDED ORALLY Q6H PRN MDD4 NOT-TAKING VITAMIN B 12 100 MCG LOZENGE ORALLY NOT-TAKING ALLERGY 10 MG TABLET 1 TABLET ORALLY ONCE A DAY NEEDED MEDICATION LIST REVIEWED AND RECONCILED WITH THE PATIENT PAST MEDICAL HISTORY BELLS PALSY HX CHRONIC PAIN ALLERGIES N.K.D.A. SURGICAL HISTORY LEFT SHOULDER REPAIR RIGHT HAND CARPAL TUNNEL AND REPAIR OF FX RIGHT KNEE SCOPE LIPOMA REMOVAL OF LOW BACK FAMILY HISTORY FATHER: DIAGNOSED WITH HYPERTENSION SOCIAL HISTORY GENERAL: TOBACCO USE ARE YOU A:CURRENT SMOKER ARE YOU INTERESTED IN QUITTING?THINKING ABOUT QUITTING COUNSELED THE PATIENT ON SMOKING CESSATION, EDUCATION [id number]/02/2019 PATIENT COUNSELED ON THE DANGERS OF TOBACCO USE AND URGED TO QUIT:04/09/2017 PAIN CLINIC PFS, CLERGY, PUBLIC HEALTH REFERRALS PFS REFERRAL NEEDED?NO CLERGY REFERRAL NEEDED?NO PUBLIC HEALTH REFERRAL NEEDED?NO WAS THE PROVIDER NOTIFIED OF ANY PERTINENT INFO?YES HAS THE PATIENT BEEN EDUCATED REGARDING HIS/HER PLAN OF CARE?YES PLEASE DOCUMENT ANY ADDTIONAL DETAILS. LUMBAR EPIDURAL HAS THE PATIENT BEEN EDUCATED REGARDING PAIN, THE RISK FOR PAIN, THE IMPORTANCE OF EFFECTIVE PAIN MANAGEMENT, AND THE PAIN ASSESSMENT PROCESS?YES LATEX QUESTIONNAIRE LATEX ALLERGY : HAVE YOU EVER DEVELOPED ANY TYPE OF REACTION AFTER HANDLING LATEX PRODUCTS SUCH RUBBER GLOVES, CONDOMS, DIAPHRAGMS, BALLOONS, SOCKS, OR UNDERWEAR?NO LATEX ALLERGY : HAVE YOU EVER DEVELOPED ANY TYPE OF REACTION DURING OR AFTER DENTAL APPOINTMENT, VAGINAL/RECTAL EXAMINATION, SURGICAL PROCEDURE, OR ANY OTHER EXPOSURE?NO LATEX RISK : HAVE YOU EVER HAD ANY DIFFICULTY BREATHING OR HIVES AFTER EATING OR HANDLING ANY FRUITS, OR VEGETABLES; SUCH KIWI, BANANAS, STONE FRUITS, OR CHESTNUTSNO LATEX RISK : DO YOU HAVE A PREVIOUS PERSONAL HISTORY OF MORE THAN NINE SURGERIES, SPINA BIFIDA, OR REPEATED CATHERIZATIONS? NO LATEX RISK : ARE YOU FREQUENTLY EXPOSED TO LATEX PRODUCTS IN YOUR OCCUPATION?NO DATE ASKED : 09/03/2018 CAFFEINE CAFFEINE USE?YES HOW OFTEN AND HOW MUCH? 1-2 CUPS PER DAY ADVANCE DIRECTIVE ADVANCE DIRECTIVE DISCUSSED WITH PATIENT:YES DECLINED HCP AND ASSISTANCE WITH FORM 12/10/18 TAOISM TAOISM NO RESTORATIONISM BELIEFS THAT WOULD IMPACT HEALTH CARE. LANGUAGE LANGUAGES SPOKEN:ICELANDIC NEW PATIENT PAIN DIARY TODAY'S VISITNOTES FROM 0-10, WHAT LEVEL IS YOUR PAIN TODAY?6 ALCOHOL SCREENING DID YOU HAVE A DRINK CONTAINING ALCOHOL IN THE PAST YEAR?YES HOW OFTEN DID YOU HAVE A DRINK CONTAINING ALCOHOL IN THE PAST YEAR?TWO TO FOUR TIMES A MONTH (2 POINTS) HOW MANY DRINKS DID YOU HAVE ON A TYPICAL DAY WHEN YOU WERE DRINKING IN THE PAST YEAR?5 OR 6 (2 POINTS) POINTS4 INTERPRETATIONPOSITIVE RECREATIONAL DRUG USE DRUG USE?NO LEARNING BARRIERS / SPECIAL NEEDS BARRIERS TO LEARNING?NO HEARING IMPAIRED?NO VISION IMPAIRED?YES :CORRECTIVE LENSES COGNITIVELY IMPAIRED?NO READINESS TO LEARN?YES REVIEWED WITH PT 02/25/18 6091 BVREVIEWED WITH PT 09/03/18 BVREVIEWED WITH PT 12/10/18 BV. HOSPITALIZATION/MAJOR DIAGNOSTIC PROCEDURE NO HOSPITALIZATION HISTORY. REVIEW OF SYSTEMS REVIEWED BY: PROVIDER: [place] . CONSTITUTIONAL: ANY CHANGE IN YOUR MEDICAL CONDITION? NO . CHILLS NO . FEVER NO . INFECTION: DO YOU HAVE NEW INFECTIONS? NO . DO YOU HAVE HISTORY OF MRSA? NO . MUSCULOSKELETAL: ANY NEW PATTERNS OF PAIN OR NUMBNESS? NO . GASTROENTEROLOGY: ANY NEW CHANGE IN BOWEL CONTROL? NO . GENITOURINARY: ANY NEW CHANGE IN BLADDER CONTROL? NO . IS THERE A CHANCE YOU COULD BE ? NO . HEMATOLOGY/LYMPH: DO YOU TAKE ANY BLOOD THINNERS? (FOR EXAMPLE- COUMADIN, PLAVIX, AGGRENOX, PLATEL, PRADAXA, OR XARELTO) NO . WHEN WAS YOUR LAST DOSE? DATE: TIME: . NEUROLOGY: HAVE YOU FALLEN IN THE PAST 12 MONTHS? NO . ANY NEW EXTREMITY NUMBNESS OR WEAKNESS? NO . CARDIOLOGY: DO YOU HAVE A PACEMAKER OR DEFIBRILLATOR? NO . RESPIRATORY: HAVE YOU BEEN SICK IN THE PAST WEEK? NO . FEVER NO . FLU LIKE SYMPTOMS? NO . COUGH NO . INTEGUMENTARY: DO YOU HAVE ANY RASHES OR OPEN SORES? NO . ALLERGIC/IMMUNO: ARE YOU ALLERGIC TO IV DYE? NO . ANY NEW ALLERGIES? NO . PSYCHIATRIC: DO YOU HAVE THOUGHTS OF HURTING YOURSELF OR SOMEONE ELSE? NO . ARE YOU ABUSED, NEGLECTED, OR IN AN UNSAFE ENVIRONMENT? NO . ENDOCRINOLOGY: ARE YOU DIABETIC? NO . OTHER: DO YOU NEED ANY PRESCRIPTIONS? NO . IF YES, PLEASE LIST: ____ . ANY NEW PROBLEMS WITH YOUR MEDICATIONS? NO . WHEN DID YOU LAST EAT? ____ . WHEN DID YOU LAST DRINK? ____ . WHAT DID YOU LAST DRINK? ____ . NAME OF PERSON DRIVING YOU HOME? ____ . DO YOU HAVE ANY OTHER QUESTIONS OR CONCERNS NO . VITAL SIGNS WT 197.2 LBS, HT 73 IN, BMI 26.01 INDEX, BP 120/86 MM HG, HR 85 /MIN, RR 18 /MIN, TEMP 97.2 F, OXYGEN SAT % 96%, NA INITIALS AW 0950, REVIEWED BY: BV. EXAMINATION GENERAL EXAMINATION: GENERALNO ACUTE DISTRESS, WELL NOURISHED AND HYDRATED. PSYCHAPPROPRIATE MOOD AND AFFECT . LUNGS:CLEAR TO AUSCULTATION BILATERALLY, NO WHEEZES, RHONCHI, RALES. HEART:NO MURMURS, REGULAR RATE AND RHYTHM. ASSESSMENTS INTERVERTEBRAL DISC DISORDER WITH RADICULOPATHY OF LUMBAR REGION - M51.16 (PRIMARY) TREATMENT INTERVERTEBRAL DISC DISORDER WITH RADICULOPATHY OF LUMBAR REGION CLINICAL NOTES: 63 YEAR OLD MALE IN FOR CHRONIC PAIN FOLLOW UP. GIVEN PRESENTING SYMPTOMS AND RESULTS OF PHYSICAL EXAMINATION RECOMMENDED CONTINUATION OF CURRENT MEDICATION REGIMEN WITH FOLLOW UP IN 3 MONTHS. PATIENT HAS EXPRESSED UNDERSTANDING OF AND WAS IN AGREEMENT WITH TREATMENT PLAN. GIVEN TIME TO ASK QUESTIONS AND EXPRESS CONCERNS., ISTOP REGISTRY REVIEWED AND DEMONSTRATES COMPLLIANCE. (REF #[id number] ) BRINGS IN MEDICATIONS WHICH IS APPROPRIATE FOR WHAT WAS DISPENSED. RECENT URINE TOXICOLOGY REVIEWED. NO UNAUTHORIZED MEDICATIONS. NO ILLICIT SUBSTANCES AND PRESCRIBED MEDICATIONS WERE PRESENT. PROCEDURE CODES FA211 ESTABILISHED PATIENT [facility] CHARGE DISPOSITION & COMMUNICATION FOLLOW UP 3 MONTHS (REASON: CHRONIC PAIN ) ELECTRONICALLY SIGNED BY TERRI MONDRAGON ON 12/13/2018 AT 09:50 AM EDT DISCLAIMER : THIS IS A VISIT SUMMARY EXTRACTED FROM THE [employer] CHART. IT IS NOT A COPY OF THE [employer] PROGRESS NOTE. CALI
== END ==
LOC: M PAIN 10:00
PROVIDERS: ATTEND Family Medicine
DX: G89.29 Other chronic pain (principal); M51.16 Intervertebral disc disorders with radiculopathy, lumbar region; F17.200 Nicotine dependence, unspecified, uncomplicated; Z79.891 Long term (current) use of opiate analgesic; Z79.899 Other long term (current) drug therapy

== ENCOUNTER → 2019-03-10 | Outpatient (CLI) | payer OTHER ==
--- NOTE | 2019-03-23 05:46 | ECWPNPC ---
PATIENT NAME: MARVIN ROSE : 1955 GENDER: MALE VISIT DATE: 03/10/2019 DISCHARGE DATE: 03/10/19 1052 VISIT LOCKED DATE TIME: PHYSICIAN: XIOMARA VAN RESOURCE: XIOMARA VAN REASON FOR APPOINTMENT 1. CHRONIC PAIN HISTORY OF PRESENT ILLNESS HISTORY OF PRESENT ILLNESS: PAIN THE PATIENT DESCRIBES THE PAIN... 63-YEAR-OLD MALE IN FOR CHRONIC PAIN FOLLOW-UP. HE RATES HIS PAIN CURRENTLY AT A 5 OUT OF 10 AND DESCRIBES IT SHARP, STABBING, SHOOTING, CONTINUOUS AND HE FURTHER STATES IT WAKES HIM FROM HIS SLEEP. FALL RISK SCREENING: SCREENING :NO FALLS REPORTED IN THE LAST YEAR CURRENT MEDICATIONS TAKING MULTI FOR HIM TABLET ORALLY DAILY TAKING IBUPROFEN 200 MG TABLET 3 TABLET NEEDED ORALLY EVERY 6 HOURS WITH FOOD PRN PAIN TAKING ALBUTEROL SULFATE HFA 108 (90 BASE) MCG/ACT AEROSOL SOLUTION 2 PUFFS NEEDED INHALATION EVERY 4 HRS TAKING COLACE 100 MG CAPSULE 1 CAPSULE NEEDED ORALLY ONCE A DAY TAKING CYCLOBENZAPRINE HCL 10 MG TABLET 1 TABLET ORALLY THREE TIMES A DAY NEEDED TAKING AMITRIPTYLINE HCL 10 MG TABLET 1 TABLET ORALLY ONCE A DAY TAKING ATORVASTATIN CALCIUM 20 MG TABLET 1 TABLET ORALLY ONCE A DAY TAKING GABAPENTIN 100 MG CAPSULE 1 CAPSULE ORALLY THREE TIMES A DAY TAKING HYDROCODONE-ACETAMINOPHEN 5-325 MG TABLET 1 TABLET NEEDED ORALLY Q6H PRN MDD4 NOT-TAKING VITAMIN B 12 100 MCG LOZENGE ORALLY NOT-TAKING ALLERGY 10 MG TABLET 1 TABLET ORALLY ONCE A DAY NEEDED MEDICATION LIST REVIEWED AND RECONCILED WITH THE PATIENT PAST MEDICAL HISTORY BELLS PALSY HX CHRONIC PAIN ALLERGIES N.K.D.A. SURGICAL HISTORY LEFT SHOULDER REPAIR RIGHT HAND CARPAL TUNNEL AND REPAIR OF FX RIGHT KNEE SCOPE LIPOMA REMOVAL OF LOW BACK FAMILY HISTORY FATHER: DIAGNOSED WITH HYPERTENSION SOCIAL HISTORY GENERAL: TOBACCO USE ARE YOU A:CURRENT SMOKER ARE YOU INTERESTED IN QUITTING?THINKING ABOUT QUITTING COUNSELED THE PATIENT ON SMOKING CESSATION, EDUCATION [id number]/31/2019 PATIENT COUNSELED ON THE DANGERS OF TOBACCO USE AND URGED TO QUIT:04/09/2017 PAIN CLINIC PFS, CLERGY, PUBLIC HEALTH REFERRALS PFS REFERRAL NEEDED?NO CLERGY REFERRAL NEEDED?NO PUBLIC HEALTH REFERRAL NEEDED?NO WAS THE PROVIDER NOTIFIED OF ANY PERTINENT INFO?YES HAS THE PATIENT BEEN EDUCATED REGARDING HIS/HER PLAN OF CARE?YES PLEASE DOCUMENT ANY ADDTIONAL DETAILS. LUMBAR EPIDURAL HAS THE PATIENT BEEN EDUCATED REGARDING PAIN, THE RISK FOR PAIN, THE IMPORTANCE OF EFFECTIVE PAIN MANAGEMENT, AND THE PAIN ASSESSMENT PROCESS?YES LATEX QUESTIONNAIRE LATEX ALLERGY : HAVE YOU EVER DEVELOPED ANY TYPE OF REACTION AFTER HANDLING LATEX PRODUCTS SUCH RUBBER GLOVES, CONDOMS, DIAPHRAGMS, BALLOONS, SOCKS, OR UNDERWEAR?NO LATEX ALLERGY : HAVE YOU EVER DEVELOPED ANY TYPE OF REACTION DURING OR AFTER DENTAL APPOINTMENT, VAGINAL/RECTAL EXAMINATION, SURGICAL PROCEDURE, OR ANY OTHER EXPOSURE?NO DATE ASKED : 09/03/2018 LATEX RISK : HAVE YOU EVER HAD ANY DIFFICULTY BREATHING OR HIVES AFTER EATING OR HANDLING ANY FRUITS, OR VEGETABLES; SUCH KIWI, BANANAS, STONE FRUITS, OR CHESTNUTSNO LATEX RISK : DO YOU HAVE A PREVIOUS PERSONAL HISTORY OF MORE THAN NINE SURGERIES, SPINA BIFIDA, OR REPEATED CATHERIZATIONS? NO LATEX RISK : ARE YOU FREQUENTLY EXPOSED TO LATEX PRODUCTS IN YOUR OCCUPATION?NO CAFFEINE CAFFEINE USE?YES HOW OFTEN AND HOW MUCH? 1-2 CUPS PER DAY ADVANCE DIRECTIVE ADVANCE DIRECTIVE DISCUSSED WITH PATIENT:YES DECLINED HCP AND ASSISTANCE WITH FORM JAINISM JAINISM NO ORTHODOX BELIEFS THAT WOULD IMPACT HEALTH CARE. LANGUAGE LANGUAGES SPOKEN:SLOVENIAN NEW PATIENT PAIN DIARY TODAY'S VISITNOTES FROM 0-10, WHAT LEVEL IS YOUR PAIN TODAY?6 ALCOHOL SCREENING DID YOU HAVE A DRINK CONTAINING ALCOHOL IN THE PAST YEAR?YES HOW MANY DRINKS DID YOU HAVE ON A TYPICAL DAY WHEN YOU WERE DRINKING IN THE PAST YEAR?5 OR 6 (2 POINTS) HOW OFTEN DID YOU HAVE A DRINK CONTAINING ALCOHOL IN THE PAST YEAR?TWO TO FOUR TIMES A MONTH (2 POINTS) POINTS4 INTERPRETATIONPOSITIVE RECREATIONAL DRUG USE DRUG USE?NO LEARNING BARRIERS / SPECIAL NEEDS BARRIERS TO LEARNING?NO HEARING IMPAIRED?NO VISION IMPAIRED?YES COGNITIVELY IMPAIRED?NO :CORRECTIVE LENSES READINESS TO LEARN?YES REVIEWED WITH PT 02/25/18 3182 BVREVIEWED WITH PT 09/03/18 BVREVIEWED WITH PT 12/10/18 BV. HOSPITALIZATION/MAJOR DIAGNOSTIC PROCEDURE NO HOSPITALIZATION HISTORY. REVIEW OF SYSTEMS REVIEWED BY: PROVIDER: [place] . CONSTITUTIONAL: ANY CHANGE IN YOUR MEDICAL CONDITION? NO . CHILLS NO . FEVER NO . INFECTION: DO YOU HAVE NEW INFECTIONS? NO . DO YOU HAVE HISTORY OF MRSA? NO . MUSCULOSKELETAL: ANY NEW PATTERNS OF PAIN OR NUMBNESS? NO . GASTROENTEROLOGY: ANY NEW CHANGE IN BOWEL CONTROL? NO . GENITOURINARY: ANY NEW CHANGE IN BLADDER CONTROL? NO . IS THERE A CHANCE YOU COULD BE ? NO . HEMATOLOGY/LYMPH: DO YOU TAKE ANY BLOOD THINNERS? (FOR EXAMPLE- COUMADIN, PLAVIX, AGGRENOX, PLATEL, PRADAXA, OR XARELTO) NO . WHEN WAS YOUR LAST DOSE? DATE: TIME: . NEUROLOGY: HAVE YOU FALLEN IN THE PAST 12 MONTHS? NO . ANY NEW EXTREMITY NUMBNESS OR WEAKNESS? NO . CARDIOLOGY: DO YOU HAVE A PACEMAKER OR DEFIBRILLATOR? NO . RESPIRATORY: HAVE YOU BEEN SICK IN THE PAST WEEK? NO . FEVER NO . FLU LIKE SYMPTOMS? NO . COUGH NO . INTEGUMENTARY: DO YOU HAVE ANY RASHES OR OPEN SORES? NO . ALLERGIC/IMMUNO: ARE YOU ALLERGIC TO IV DYE? NO . ANY NEW ALLERGIES? NO . PSYCHIATRIC: DO YOU HAVE THOUGHTS OF HURTING YOURSELF OR SOMEONE ELSE? NO . ARE YOU ABUSED, NEGLECTED, OR IN AN UNSAFE ENVIRONMENT? NO . ENDOCRINOLOGY: ARE YOU DIABETIC? NO . OTHER: DO YOU NEED ANY PRESCRIPTIONS? NO . IF YES, PLEASE LIST: ____ . ANY NEW PROBLEMS WITH YOUR MEDICATIONS? NO . WHEN DID YOU LAST EAT? ____ . WHEN DID YOU LAST DRINK? ____ . WHAT DID YOU LAST DRINK? ____ . NAME OF PERSON DRIVING YOU HOME? ____ . DO YOU HAVE ANY OTHER QUESTIONS OR CONCERNS NO . VITAL SIGNS WT 195.2 LBS, HT 73 IN, BMI 25.75 INDEX, BP 149/74 MM HG, HR 75 /MIN, RR 18 /MIN, TEMP 98.6 F, OXYGEN SAT % 97%, NA INITIALS AW 1003, REVIEWED BY: EM. EXAMINATION GENERAL EXAMINATION: GENERALNO ACUTE DISTRESS, WELL NOURISHED AND HYDRATED. PSYCHAPPROPRIATE MOOD AND AFFECT . LUNGS:CLEAR TO AUSCULTATION BILATERALLY, NO WHEEZES, RHONCHI, RALES. HEART:NO MURMURS, REGULAR RATE AND RHYTHM. ASSESSMENTS LUMBAR DISC DISPLACEMENT WITHOUT MYELOPATHY - M51.26 (PRIMARY) TREATMENT LUMBAR DISC DISPLACEMENT WITHOUT MYELOPATHY STOP AMITRIPTYLINE HCL TABLET, 10 MG, 1 TABLET, ORALLY, ONCE A DAY START CYMBALTA CAPSULE DELAYED RELEASE PARTICLES, 30 MG, 1 CAPSULE, ORALLY, ONCE A DAY, 30 DAY(S), 30, REFILLS 1 CLINICAL NOTES: 63-YEAR-OLD MALE IN FOR CHRONIC PAIN FOLLOW-UP. GIVEN PRESENTING SYMPTOMS AND RESULTS OF PHYSICAL EXAMINATION RECOMMENDED DISCONTINUATION OF AND AMITRIPTYLINE AND STARTING DULOXETINE 30 MG DAILY WITH FOLLOW-UP IN 2 MONTHS TO DISCUSS EFFICACY OF TREATMENT. PATIENT HAS EXPRESSED UNDERSTANDING OF AND WAS IN AGREEMENT WITH TREATMENT PLAN. GIVEN TIME TO ASK QUESTIONS AND EXPRESS CONCERNS., ISTOP REGISTRY REVIEWED AND DEMONSTRATES COMPLLIANCE. (REF # [id number] ) BRINGS IN MEDICATIONS WHICH IS APPROPRIATE FOR WHAT WAS DISPENSED. RECENT URINE TOXICOLOGY REVIEWED. NO UNAUTHORIZED MEDICATIONS. NO ILLICIT SUBSTANCES AND PRESCRIBED MEDICATIONS WERE PRESENT. OTHERS NOTES: DULOXETINE MATERIAL WAS PRINTED. PROCEDURE CODES FA211 ESTABILISHED PATIENT [facility] CHARGE DISPOSITION & COMMUNICATION FOLLOW UP 2 MONTHS (REASON: MEDICATION CHANGE ) ELECTRONICALLY SIGNED BY TERRI MONDRAGON ON 03/22/2019 AT 09:19 AM EST DISCLAIMER : THIS IS A VISIT SUMMARY EXTRACTED FROM THE [employer] CHART. IT IS NOT A COPY OF THE [employer] PROGRESS NOTE. CALI
== END ==
LOC: M PAIN 10:15
PROVIDERS: ATTEND Family Medicine
DX: M51.26 Other intervertebral disc displacement, lumbar region (principal); F17.210 Nicotine dependence, cigarettes, uncomplicated; Z79.891 Long term (current) use of opiate analgesic; Z79.899 Other long term (current) drug therapy

== ENCOUNTER → 2019-09-30 | Outpatient (CLI) | payer OTHER ==
[~2019-09-30] MED LIST changes: +CYCL-707 PO; -CYCL10TA PO
--- NOTE | 2019-10-07 03:20 | ECWPNPC ---
PATIENT NAME: MARVIN ROSE : 1955 GENDER: MALE VISIT DATE: 09/30/2019 DISCHARGE DATE: 09/30/19 1123 VISIT LOCKED DATE TIME: PHYSICIAN: XIOMARA VAN RESOURCE: XIOMARA VAN REASON FOR APPOINTMENT 1. BACK PAIN [phone] PAT COMPLETED HISTORY OF PRESENT ILLNESS HISTORY OF PRESENT ILLNESS: PAIN THE PATIENT DESCRIBES THE PAINDURING THE LAST MONTH SEVERITY - PAIN SCORE OF5/10 LOCATIONSLOWER BACK QUALITYACHING DURATIONCONTINUOUS, CONSTANT, ALL DAY PAIN IS INCREASED BY:ACTIVITIES, PROLONGED STANDING PAIN IS DECREASED BY: LYING DOWN PERMISSION REQUESTED AND RECEIVED FROM PATIENT TO PERFORM TELEPHONE VISIT. 63-YEAR-OLD MALE IN FOR CHRONIC PAIN FOLLOW-UP. HE RATES HIS PAIN CURRENTLY AT A 5 OUT OF 10. HE FEELS THE MEDICATIONS ARE HELPFUL AND DENIES MED SIDE EFFECTS AT THIS TIME. FALL RISK SCREENING: SCREENING :NO FALLS REPORTED IN THE LAST YEAR CURRENT MEDICATIONS TAKING MULTI FOR HIM TABLET ORALLY DAILY TAKING IBUPROFEN 200 MG TABLET 3 TABLET NEEDED ORALLY EVERY 6 HOURS WITH FOOD PRN PAIN TAKING ALBUTEROL SULFATE HFA 108 (90 BASE) MCG/ACT AEROSOL SOLUTION 2 PUFFS NEEDED INHALATION EVERY 4 HRS TAKING COLACE 100 MG CAPSULE 1 CAPSULE NEEDED ORALLY ONCE A DAY TAKING CYCLOBENZAPRINE HCL 10 MG TABLET 1 TABLET ORALLY THREE TIMES A DAY NEEDED TAKING ATORVASTATIN CALCIUM 20 MG TABLET 1 TABLET ORALLY ONCE A DAY TAKING GABAPENTIN 100 MG CAPSULE 1 CAPSULE ORALLY THREE TIMES A DAY TAKING CYMBALTA 30 MG CAPSULE DELAYED RELEASE PARTICLES 1 CAPSULE ORALLY ONCE A DAY TAKING HYDROCODONE-ACETAMINOPHEN 5-325 MG TABLET 1 TABLET NEEDED ORALLY Q6H PRN MDD4 NOT-TAKING VITAMIN B 12 100 MCG LOZENGE ORALLY NOT-TAKING ALLERGY 10 MG TABLET 1 TABLET ORALLY ONCE A DAY NEEDED MEDICATION LIST REVIEWED AND RECONCILED WITH THE PATIENT PAST MEDICAL HISTORY BELLS PALSY HX CHRONIC PAIN ALLERGIES N.K.D.A. SURGICAL HISTORY LEFT SHOULDER REPAIR RIGHT HAND CARPAL TUNNEL AND REPAIR OF FX RIGHT KNEE SCOPE LIPOMA REMOVAL OF LOW BACK FAMILY HISTORY FATHER: DIAGNOSED WITH HYPERTENSION SOCIAL HISTORY GENERAL: TOBACCO USE ARE YOU A:CURRENT SMOKER ARE YOU INTERESTED IN QUITTING?THINKING ABOUT QUITTING COUNSELED THE PATIENT ON SMOKING CESSATION, EDUCATION [id number]/22/2020 PATIENT COUNSELED ON THE DANGERS OF TOBACCO USE AND URGED TO QUIT:09/30/2019 SMOKING CESSATION INFORMATION GIVEN09/30/2019 LATEX QUESTIONNAIRE LATEX ALLERGY : HAVE YOU EVER DEVELOPED ANY TYPE OF REACTION AFTER HANDLING LATEX PRODUCTS SUCH RUBBER GLOVES, CONDOMS, DIAPHRAGMS, BALLOONS, SOCKS, OR UNDERWEAR?NO LATEX ALLERGY : HAVE YOU EVER DEVELOPED ANY TYPE OF REACTION DURING OR AFTER DENTAL APPOINTMENT, VAGINAL/RECTAL EXAMINATION, SURGICAL PROCEDURE, OR ANY OTHER EXPOSURE?NO DATE ASKED : 09/03/2018 LATEX RISK : HAVE YOU EVER HAD ANY DIFFICULTY BREATHING OR HIVES AFTER EATING OR HANDLING ANY FRUITS, OR VEGETABLES; SUCH KIWI, BANANAS, STONE FRUITS, OR CHESTNUTSNO LATEX RISK : DO YOU HAVE A PREVIOUS PERSONAL HISTORY OF MORE THAN NINE SURGERIES, SPINA BIFIDA, OR REPEATED CATHERIZATIONS? NO LATEX RISK : ARE YOU FREQUENTLY EXPOSED TO LATEX PRODUCTS IN YOUR OCCUPATION?NO ALCOHOL SCREENING DID YOU HAVE A DRINK CONTAINING ALCOHOL IN THE PAST YEAR?YES HOW MANY DRINKS DID YOU HAVE ON A TYPICAL DAY WHEN YOU WERE DRINKING IN THE PAST YEAR?5 OR 6 (2 POINTS) HOW OFTEN DID YOU HAVE A DRINK CONTAINING ALCOHOL IN THE PAST YEAR?TWO TO FOUR TIMES A MONTH (2 POINTS) POINTS4 INTERPRETATIONPOSITIVE RECREATIONAL DRUG USE DRUG USE?NO CAFFEINE CAFFEINE USE?YES HOW OFTEN AND HOW MUCH? 1-2 CUPS PER DAY ZOROASTRIANISM ZOROASTRIANISM NO RESTORATION BELIEFS THAT WOULD IMPACT HEALTH CARE. LANGUAGE LANGUAGES SPOKEN:TELUGU LEARNING BARRIERS / SPECIAL NEEDS BARRIERS TO LEARNING?NO HEARING IMPAIRED?NO VISION IMPAIRED?YES COGNITIVELY IMPAIRED?NO :CORRECTIVE LENSES READINESS TO LEARN?YES NEW PATIENT PAIN DIARY TODAY'S VISITNOTES FROM 0-10, WHAT LEVEL IS YOUR PAIN TODAY?6 PAIN CLINIC PFS, CLERGY, PUBLIC HEALTH REFERRALS PFS REFERRAL NEEDED?NO CLERGY REFERRAL NEEDED?NO PUBLIC HEALTH REFERRAL NEEDED?NO WAS THE PROVIDER NOTIFIED OF ANY PERTINENT INFO?YES HAS THE PATIENT BEEN EDUCATED REGARDING HIS/HER PLAN OF CARE?YES PLEASE DOCUMENT ANY ADDTIONAL DETAILS. LUMBAR EPIDURAL HAS THE PATIENT BEEN EDUCATED REGARDING PAIN, THE RISK FOR PAIN, THE IMPORTANCE OF EFFECTIVE PAIN MANAGEMENT, AND THE PAIN ASSESSMENT PROCESS?YES ADVANCE DIRECTIVE ADVANCE DIRECTIVE DISCUSSED WITH PATIENT:YES DECLINED HCP AND ASSISTANCE WITH FORM HOSPITALIZATION/MAJOR DIAGNOSTIC PROCEDURE NO HOSPITALIZATION HISTORY. REVIEW OF SYSTEMS REVIEWED BY: PROVIDER: [place] . CONSTITUTIONAL: ANY CHANGE IN YOUR MEDICAL CONDITION? NO . CHILLS NO . FEVER NO . INFECTION: DO YOU HAVE NEW INFECTIONS? NO . DO YOU HAVE HISTORY OF MRSA? NO . MUSCULOSKELETAL: ANY NEW PATTERNS OF PAIN OR NUMBNESS? YES, LEFT FOOT (BIG TOE) NUMBNESS . GASTROENTEROLOGY: ANY NEW CHANGE IN BOWEL CONTROL? NO . GENITOURINARY: ANY NEW CHANGE IN BLADDER CONTROL? NO . IS THERE A CHANCE YOU COULD BE ? NO . HEMATOLOGY/LYMPH: DO YOU TAKE ANY BLOOD THINNERS? (FOR EXAMPLE- COUMADIN, PLAVIX, AGGRENOX, PLATEL, PRADAXA, OR XARELTO) NO . WHEN WAS YOUR LAST DOSE? DATE: TIME: . NEUROLOGY: HAVE YOU FALLEN IN THE PAST 12 MONTHS? NO . ANY NEW EXTREMITY NUMBNESS OR WEAKNESS? NO . CARDIOLOGY: DO YOU HAVE A PACEMAKER OR DEFIBRILLATOR? NO . RESPIRATORY: HAVE YOU BEEN SICK IN THE PAST WEEK? NO . FEVER NO . FLU LIKE SYMPTOMS? NO . COUGH NO . INTEGUMENTARY: DO YOU HAVE ANY RASHES OR OPEN SORES? NO . ALLERGIC/IMMUNO: ARE YOU ALLERGIC TO IV DYE? NO . ANY NEW ALLERGIES? NO . PSYCHIATRIC: DO YOU HAVE THOUGHTS OF HURTING YOURSELF OR SOMEONE ELSE? NO . ARE YOU ABUSED, NEGLECTED, OR IN AN UNSAFE ENVIRONMENT? NO . ENDOCRINOLOGY: ARE YOU DIABETIC? NO . OTHER: DO YOU NEED ANY PRESCRIPTIONS? NO . IF YES, PLEASE LIST: ____ . ANY NEW PROBLEMS WITH YOUR MEDICATIONS? NO . WHEN DID YOU LAST EAT? ____ . WHEN DID YOU LAST DRINK? ____ . WHAT DID YOU LAST DRINK? ____ . NAME OF PERSON DRIVING YOU HOME? ____ . DO YOU HAVE ANY OTHER QUESTIONS OR CONCERNS NO . EXAMINATION GENERAL EXAMINATION: PSYCHAPPROPRIATE MOOD AND AFFECT , ORIENTED X 3. ASSESSMENTS INTERVERTEBRAL DISC DISORDERS WITH RADICULOPATHY, LUMBOSACRAL REGION - M51.17 (PRIMARY) TREATMENT INTERVERTEBRAL DISC DISORDERS WITH RADICULOPATHY, LUMBOSACRAL REGION CLINICAL NOTES: 63-YEAR-OLD MALE IN FOR CHRONIC PAIN FOLLOW-UP. GIVEN PRESENTING SYMPTOMS RECOMMEND FOLLOW-UP IN 3 MONTHS. PATIENT HAS EXPRESSED UNDERSTANDING OF AND WAS IN AGREEMENT WITH TREATMENT PLAN. GIVEN TIME TO ASK QUESTIONS AND EXPRESS CONCERNS. , ISTOP REGISTRY REVIEWED AND DEMONSTRATES COMPLLIANCE. (REF # [id number] ) BRINGS IN MEDICATIONS WHICH IS APPROPRIATE FOR WHAT WAS DISPENSED. RECENT URINE TOXICOLOGY REVIEWED. NO UNAUTHORIZED MEDICATIONS. NO ILLICIT SUBSTANCES AND PRESCRIBED MEDICATIONS WERE PRESENT. VISIT TO BE BILLED BASED ON TIME SPENT WITH PATIENT. TIME SPENT WITH PATIENT 11 MINUTES. OTHERS NOTES: VITALS NOT OBTAINED DUE TO PHONE VISIT, PRE-SCREENING COMPLETED, 09/30/19, NA. DISPOSITION & COMMUNICATION FOLLOW UP 3 MONTHS (REASON: BACK PAIN) ELECTRONICALLY SIGNED BY TERRI MONDRAGON ON 10/06/2019 AT 10:39 AM EDT DISCLAIMER : THIS IS A VISIT SUMMARY EXTRACTED FROM THE [employer] CHART. IT IS NOT A COPY OF THE [employer] PROGRESS NOTE. CALI
== END ==
LOC: M TMPAIN 10:45 → M PAIN 10:45
PROVIDERS: ATTEND Family Medicine
DX: M51.17 Intervertebral disc disorders with radiculopathy, lumbosacral region (principal); F17.210 Nicotine dependence, cigarettes, uncomplicated; Z79.891 Long term (current) use of opiate analgesic; Z79.899 Other long term (current) drug therapy

== ENCOUNTER → 2020-01-02 | Outpatient (CLI) | payer OTHER | LOC: M PAIN 10:14 | PROVIDERS: ATTEND Family Medicine | DX: M51.17 Intervertebral disc disorders with radiculopathy, lumbosacral region (principal) ==

== ENCOUNTER → 2020-09-14 | Outpatient (CLI) | payer OTHER ==
[~2020-09-14] MED LIST changes: +GABA-283 PO; -GABA-845 PO
--- NOTE | 2020-09-18 01:35 | ECWPNPC ---
PATIENT NAME: MARVIN ROSE : 1955 GENDER: MALE VISIT DATE: 09/14/2020 DISCHARGE DATE: 09/14/20 1151 VISIT LOCKED DATE TIME: PHYSICIAN: XIOMARA VAN RESOURCE: XIOMARA VAN REASON FOR APPOINTMENT 1. F/U HISTORY OF PRESENT ILLNESS GENERAL: HPI 64-YEAR-OLD MALE IN FOR CHRONIC PAIN FOLLOW-UP. HE RATES HIS PAIN CURRENTLY AT A 7 OUT OF 10 AND DESCRIBES IT CONTINUOUS AND SHARP. HE DOES FEELS MEDICATIONS ARE HELPFUL BUT DOES ADMIT TO INCREASED PAIN AT NIGHT. HE DENIES MED SIDE EFFECTS AT THIS TIME.. -. FALL RISK SCREENING: SCREENING : NO FALLS REPORTED IN THE LAST YEAR. PAIN SCREENING: PATIENT HAS A COMPLAINT OF ACUTE OR CHRONIC PAIN :YES LOCATION OF PAIN:LOW BACK, LEFT HIP, RIGHT HIP, LEG(S) INTENSITY OF PAIN (SCALE OF 1 TO 10):7 WHAT DOES YOUR PAIN FEEL LIKE:CONTINOUS, SHARP DURATION:CONTINOUS, CONSTANT, ALL DAY PAIN IS INCREASED BY:ACTIVITIES, PROLONGED STANDING PAIN IS DECREASED BY:SITTING, OTHERS LAYING DOWN NURSING NOTE: -. PAIN CENTER INTAKE QUESTIONS: DO YOU HAVE A HISTORY OF MRSA? :NO DO YOU TAKE A BLOOD THINNERS? :NO DO YOU HAVE ANY BLEEDING DISORDERS? :NO ANY NEW NUMBNESS OR WEAKNESS IN YOUR LEGS OR ARMS? :YES NUMBNESS TO SOME TOES ON BOTH FEET, NUMBNESS TRAVELING UP LEFT FOOT ANY PACEMAKER,DEFIBRILLATOR, OR DORSAL COLUMN STIMULATOR? :NO DO YOU HAVE ANY RASHES OR OPEN SORES? :NO ARE YOU ALLERGIC TO IV DYE? :NO ARE YOU DIABETIC? :NO ANY NEW PROBLEMS WITH YOUR MEDICATIONS? :NO HAVE YOU RECEIVED A VACCINE IN THE PAST 30 DAYS? :NO DO YOU PLAN TO RECEIVE A VACCINE IN THE NEXT 21 DAYS? :NO DO YOU NEED ANY PRESCRIPTION? :YES WOULD LIKE WRITTEN PRESCRIPTION FOR THE PERCOCET THAT WAS SENT IN YESTERDAY SO HE CAN GET IT FILLED HERE BEFORE GOING HOME TO DECREASE HIS TRAVEL TIME FOR TODAY. WOULD LIKE NEW PRESCRIPTION FOR GABAPENTIN. DO YOU TAKE ANY IMMUNOSUPPRESSIVE MEDICATIONS? :NO DO YOU HAVE ANY KIDNEY OR LIVER DISEASE? :NO IS THERE A CHANCE YOU COULD BE ? :NO ARE YOU BREAST FEEDING? :NO CURRENT MEDICATIONS TAKING MULTI FOR HIM TABLET ORALLY DAILY TAKING IBUPROFEN 200 MG TABLET 3 TABLET NEEDED ORALLY EVERY 6 HOURS WITH FOOD PRN PAIN TAKING ALBUTEROL SULFATE HFA 108 (90 BASE) MCG/ACT AEROSOL SOLUTION 2 PUFFS NEEDED INHALATION EVERY 4 HRS TAKING COLACE 100 MG CAPSULE 1 CAPSULE NEEDED ORALLY ONCE A DAY TAKING CYCLOBENZAPRINE HCL 10 MG TABLET 1 TABLET ORALLY THREE TIMES A DAY NEEDED TAKING GABAPENTIN 100 MG CAPSULE 1 CAPSULE ORALLY THREE TIMES A DAY NEEDED TAKING PERCOCET 5-325 MG TABLET 1 TABLET NEEDED ORALLY EVERY 8 HRS NEEDED NOT-TAKING ATORVASTATIN CALCIUM 20 MG TABLET 1 TABLET ORALLY ONCE A DAY NOT-TAKING CYMBALTA 30 MG CAPSULE DELAYED RELEASE PARTICLES 1 CAPSULE ORALLY ONCE A DAY NOT-TAKING VITAMIN B 12 100 MCG LOZENGE ORALLY NOT-TAKING ALLERGY 10 MG TABLET 1 TABLET ORALLY ONCE A DAY NEEDED MEDICATION LIST REVIEWED AND RECONCILED WITH THE PATIENT PAST MEDICAL HISTORY BELLS PALSY HX CHRONIC PAIN ALLERGIES N.K.D.A. SOCIAL HISTORY GENERAL: TOBACCO USE ARE YOU A:CURRENT SMOKER ARE YOU INTERESTED IN QUITTING?THINKING ABOUT QUITTING COUNSELED THE PATIENT ON SMOKING CESSATION, EDUCATION [id number]/07/2021 PATIENT COUNSELED ON THE DANGERS OF TOBACCO USE AND URGED TO QUIT:09/14/2020 SMOKING CESSATION INFORMATION GIVEN09/30/2019 LATEX QUESTIONNAIRE LATEX ALLERGY : HAVE YOU EVER DEVELOPED ANY TYPE OF REACTION AFTER HANDLING LATEX PRODUCTS SUCH RUBBER GLOVES, CONDOMS, DIAPHRAGMS, BALLOONS, SOCKS, OR UNDERWEAR?NO LATEX ALLERGY : HAVE YOU EVER DEVELOPED ANY TYPE OF REACTION DURING OR AFTER DENTAL APPOINTMENT, VAGINAL/RECTAL EXAMINATION, SURGICAL PROCEDURE, OR ANY OTHER EXPOSURE?NO LATEX RISK : HAVE YOU EVER HAD ANY DIFFICULTY BREATHING OR HIVES AFTER EATING OR HANDLING ANY FRUITS, OR VEGETABLES; SUCH KIWI, BANANAS, STONE FRUITS, OR CHESTNUTSNO LATEX RISK : DO YOU HAVE A PREVIOUS PERSONAL HISTORY OF MORE THAN NINE SURGERIES, SPINA BIFIDA, OR REPEATED CATHERIZATIONS? NO LATEX RISK : ARE YOU FREQUENTLY EXPOSED TO LATEX PRODUCTS IN YOUR OCCUPATION?NO DATE ASKED : 09/14/2020 ALCOHOL USE: YES. ALCOHOL SCREENING DID YOU HAVE A DRINK CONTAINING ALCOHOL IN THE PAST YEAR?YES HOW MANY DRINKS DID YOU HAVE ON A TYPICAL DAY WHEN YOU WERE DRINKING IN THE PAST YEAR?5 OR 6 (2 POINTS) HOW OFTEN DID YOU HAVE A DRINK CONTAINING ALCOHOL IN THE PAST YEAR?TWO TO FOUR TIMES A MONTH (2 POINTS) POINTS4 INTERPRETATIONPOSITIVE RECREATIONAL DRUG USE DRUG USE?YES HOW OFTEN AND HOW MUCH? ADMITS TO SMALL AMOUNT OF MARIJUANA USE RECENTLY IT BECAME LEGAL RECENTLY. CAFFEINE CAFFEINE USE?YES HOW OFTEN AND HOW MUCH? 1-2 CUPS PER DAY YARSANI YARSANI NO PENTECOSTALISM BELIEFS THAT WOULD IMPACT HEALTH CARE. LANGUAGE LANGUAGES SPOKEN:CROATIAN LEARNING BARRIERS / SPECIAL NEEDS CHANGE FROM LAST VISIT?NO BARRIERS TO LEARNING?NO HEARING IMPAIRED?NO VISION IMPAIRED?YES :CORRECTIVE LENSES COGNITIVELY IMPAIRED?NO READINESS TO LEARN?YES LEARNING PREFERENCES?NO LEARNING CAPABILITIES PRESENT?YES EMOTIONAL BARRIERS?NO SPECIAL DEVICES?YES :CANE NEEDED GOLF COURSE ARCHITECT NEEDED?NO TODAY'S VISITNOTES FROM 0-10, WHAT LEVEL IS YOUR PAIN TODAY?6 - PFS REFERRAL NEEDED?NO CLERGY REFERRAL NEEDED?NO PUBLIC HEALTH REFERRAL NEEDED?NO WAS THE PROVIDER NOTIFIED OF ANY PERTINENT INFO?YES HAS THE PATIENT BEEN EDUCATED REGARDING HIS/HER PLAN OF CARE?YES PLEASE DOCUMENT ANY ADDTIONAL DETAILS. LUMBAR EPIDURAL HAS THE PATIENT BEEN EDUCATED REGARDING PAIN, THE RISK FOR PAIN, THE IMPORTANCE OF EFFECTIVE PAIN MANAGEMENT, AND THE PAIN ASSESSMENT PROCESS?YES ADVANCE DIRECTIVE ADVANCE DIRECTIVE DISCUSSED WITH PATIENT:YES DECLINED HCP AND ASSISTANCE WITH FORM REVIEW OF SYSTEMS CONSTITUTIONAL: ANY RECENT FEVER NO . CHILLS NO . WEIGHT CHANGE OF UNKNOWN REASONS NO . GASTROENTEROLOGY: NEW UNEXPLAINABLE CHANGES IN BOWEL CONTROL NO . CONSTIPATION NO . GENITOURINARY: ANY NEW CHANGE IN BLADDER CONTROL? NO . NEUROLOGY: NEW ONSET DIZZINESS OR NEUROLOGICAL CHANGES NOT MENTIONED NO . NEW NUMBNESS OR PAIN PATTERNS NOT MENTIONED AND PERTINENT TO TODAY'S VISIT NO . CARDIOLOGY: NEW CHEST PRESSURE NO . PATIENT DENIES NO . RESPIRATORY: UNEXPLAINABLE COUGH NO . NEW SHORTNESS OF BREATH NO . VITAL SIGNS WT 193.2 LBS, HT 73 IN, BMI 25.49 INDEX, BP 149/68 MM HG, HR 79 /MIN, RR 18 /MIN, TEMP 97.9 F, OXYGEN SAT % 100%, SAFE IN ENV? (Y/N) YES, NA INITIALS NE 10:51, REVIEWED BY: Moody SHAIKH RN. EXAMINATION GENERAL EXAMINATION: GENERALNO ACUTE DISTRESS, WELL NOURISHED AND HYDRATED. PSYCHAPPROPRIATE MOOD AND AFFECT . LUNGS:CLEAR TO AUSCULTATION BILATERALLY, NO WHEEZES, RHONCHI, RALES. HEART:NO MURMURS, REGULAR RATE AND RHYTHM. ASSESSMENTS LUMBAR DISC DISPLACEMENT WITHOUT MYELOPATHY - M51.26 (PRIMARY), RISK: (NULL) CHRONIC PRESCRIPTION OPIATE USE - Z79.891 TREATMENT LUMBAR DISC DISPLACEMENT WITHOUT MYELOPATHY CONTINUE PERCOCET TABLET, 5-325 MG, 1 TABLET NEEDED, ORALLY, EVERY 6 HRS NEEDED, 30 DAYS DAY(S), 120 CHRONIC PRESCRIPTION OPIATE USE LAB: [facility] LIZ MCDERMOTT 09/14/2020 11:48:18 AM > LAST DOSE: PERCOCET 09/11/2020; GABAPENTIN 09/13/2020 NOTES: WHO 5-YEAR-OLD MALE IN FOR CHRONIC PAIN FOLLOW-UP. GIVEN PRESENTING SYMPTOMS RECOMMEND INCREASING PERCOCET TO ONE TAB ORALLY 4 TIMES A DAY NEEDED FOR PAIN WITH FOLLOW-UP IN 3 MONTHS. PATIENT WAS INFORMED THAT EVEN THOUGH [place] HE [place] TO USE IT IT A VIOLATION OF HIS NARCOTIC AGREEMENT. PATIENT HAS EXPRESSED UNDERSTANDING OF AND WAS IN AGREEMENT WITH TREATMENT PLAN. GIVEN TIME TO ASK QUESTIONS AND EXPRESS CONCERNS. ISTOP REGISTRY REVIEWED AND DEMONSTRATES COMPLLIANCE. (REF # ) BRINGS IN MEDICATIONS WHICH IS APPROPRIATE FOR WHAT WAS DISPENSED. RECENT URINE TOXICOLOGY REVIEWED. NO UNAUTHORIZED MEDICATIONS. NO ILLICIT SUBSTANCES AND PRESCRIBED MEDICATIONS WERE PRESENT. PROCEDURE CODES FA211 ESTABILISHED PATIENT [facility] CHARGE DISPOSITION & COMMUNICATION FOLLOW UP 3 MONTHS (REASON: BACK PAIN ) ELECTRONICALLY SIGNED BY TERRI MONDRAGON ON 09/17/2020 AT 12:24 PM EDT DISCLAIMER : THIS IS A VISIT SUMMARY EXTRACTED FROM THE [employer] CHART. IT IS NOT A COPY OF THE [email or web address] PROGRESS NOTE. MTDD
== END ==
LOC: M PAIN 10:45
PROVIDERS: ATTEND Family Medicine
DX: M51.26 Other intervertebral disc displacement, lumbar region (principal); G89.29 Other chronic pain; F17.200 Nicotine dependence, unspecified, uncomplicated; Z79.899 Other long term (current) drug therapy

== ENCOUNTER → 2020-12-14 | Outpatient (CLI) | payer OTHER ==
--- NOTE | 2020-12-15 04:07 | ECWPNPC ---
PATIENT NAME: MARVIN ROSE : 1955 GENDER: MALE VISIT DATE: 12/14/2020 DISCHARGE DATE: 12/14/20 1109 VISIT LOCKED DATE TIME: PHYSICIAN: XIOMARA VAN RESOURCE: XIOMARA VAN REASON FOR APPOINTMENT 1. BACK PAIN HISTORY OF PRESENT ILLNESS GENERAL: HPI 65-YEAR-OLD MALE IN FOR CHRONIC PAIN FOLLOW-UP. HE RATES HIS PAIN CURRENTLY AT AN 8 OUT OF 10 AND DESCRIBES IT SHOOTING. HE FEELS HIS MEDICATIONS ARE HELPFUL AND DENIES MED SIDE EFFECTS AT THIS TIME. AT LAST CLINIC VISIT PATIENT'S MEDICATION WAS INCREASED TO 4 TIMES A DAY DOSING AND HE ADMITS THAT THIS HAS BEEN BENEFICIAL. . -. FALL RISK SCREENING: SCREENING : NO FALLS REPORTED IN THE LAST YEAR. PAIN SCREENING: PATIENT HAS A COMPLAINT OF ACUTE OR CHRONIC PAIN :YES LOCATION OF PAIN:MID BACK, LOW BACK DOWN LEFT LEG INTENSITY OF PAIN (SCALE OF 1 TO 10):8 WHAT DOES YOUR PAIN FEEL LIKE:SHOOTING DURATION:CONTINOUS PAIN IS INCREASED BY:ACTIVITIES PAIN IS DECREASED BY:USE OF PAIN MEDICATIONS NURSING NOTE: -. PAIN CENTER INTAKE QUESTIONS: DO YOU HAVE A HISTORY OF MRSA? :NO DO YOU TAKE A BLOOD THINNERS? :NO DO YOU HAVE ANY BLEEDING DISORDERS? :NO ANY NEW NUMBNESS OR WEAKNESS IN YOUR LEGS OR ARMS? :YES NUMBNESS TO SOME TOES ON BOTH FEET, NUMBNESS TRAVELING UP LEFT FOOT ANY PACEMAKER,DEFIBRILLATOR, OR DORSAL COLUMN STIMULATOR? :NO DO YOU HAVE ANY RASHES OR OPEN SORES? :NO ARE YOU ALLERGIC TO IV DYE? :NO ARE YOU DIABETIC? :NO ANY NEW PROBLEMS WITH YOUR MEDICATIONS? :NO HAVE YOU RECEIVED A VACCINE IN THE PAST 30 DAYS? :NO DO YOU PLAN TO RECEIVE A VACCINE IN THE NEXT 21 DAYS? :NO DO YOU NEED ANY PRESCRIPTION? :NO DO YOU TAKE ANY IMMUNOSUPPRESSIVE MEDICATIONS? :NO DO YOU HAVE ANY KIDNEY OR LIVER DISEASE? :NO IS THERE A CHANCE YOU COULD BE ? :NO ARE YOU BREAST FEEDING? :NO CURRENT MEDICATIONS TAKING MULTI FOR HIM TABLET ORALLY DAILY TAKING IBUPROFEN 200 MG TABLET 3 TABLET NEEDED ORALLY EVERY 6 HOURS WITH FOOD PRN PAIN TAKING ALBUTEROL SULFATE HFA 108 (90 BASE) MCG/ACT AEROSOL SOLUTION 2 PUFFS NEEDED INHALATION EVERY 4 HRS TAKING COLACE 100 MG CAPSULE 1 CAPSULE NEEDED ORALLY ONCE A DAY TAKING CYCLOBENZAPRINE HCL 10 MG TABLET 1 TABLET ORALLY THREE TIMES A DAY NEEDED TAKING GABAPENTIN 100 MG CAPSULE 1 CAPSULE ORALLY THREE TIMES A DAY NEEDED TAKING PERCOCET 5-325 MG TABLET 1 TABLET NEEDED ORALLY EVERY 6 HRS NEEDED NOT-TAKING ATORVASTATIN CALCIUM 20 MG TABLET 1 TABLET ORALLY ONCE A DAY NOT-TAKING CYMBALTA 30 MG CAPSULE DELAYED RELEASE PARTICLES 1 CAPSULE ORALLY ONCE A DAY NOT-TAKING VITAMIN B 12 100 MCG LOZENGE ORALLY NOT-TAKING ALLERGY 10 MG TABLET 1 TABLET ORALLY ONCE A DAY NEEDED MEDICATION LIST REVIEWED AND RECONCILED WITH THE PATIENT PAST MEDICAL HISTORY BELLS PALSY HX CHRONIC PAIN ALLERGIES N.K.D.A. SOCIAL HISTORY GENERAL: TOBACCO USE ARE YOU A:CURRENT SMOKER ARE YOU INTERESTED IN QUITTING?THINKING ABOUT QUITTING COUNSELED THE PATIENT ON SMOKING CESSATION, EDUCATION [id number]/07/2021 PATIENT COUNSELED ON THE DANGERS OF TOBACCO USE AND URGED TO QUIT:12/14/2020 SMOKING CESSATION INFORMATION GIVEN09/30/2019 LATEX QUESTIONNAIRE LATEX ALLERGY : HAVE YOU EVER DEVELOPED ANY TYPE OF REACTION AFTER HANDLING LATEX PRODUCTS SUCH RUBBER GLOVES, CONDOMS, DIAPHRAGMS, BALLOONS, SOCKS, OR UNDERWEAR?NO LATEX ALLERGY : HAVE YOU EVER DEVELOPED ANY TYPE OF REACTION DURING OR AFTER DENTAL APPOINTMENT, VAGINAL/RECTAL EXAMINATION, SURGICAL PROCEDURE, OR ANY OTHER EXPOSURE?NO LATEX RISK : HAVE YOU EVER HAD ANY DIFFICULTY BREATHING OR HIVES AFTER EATING OR HANDLING ANY FRUITS, OR VEGETABLES; SUCH KIWI, BANANAS, STONE FRUITS, OR CHESTNUTSNO LATEX RISK : DO YOU HAVE A PREVIOUS PERSONAL HISTORY OF MORE THAN NINE SURGERIES, SPINA BIFIDA, OR REPEATED CATHERIZATIONS? NO LATEX RISK : ARE YOU FREQUENTLY EXPOSED TO LATEX PRODUCTS IN YOUR OCCUPATION?NO DATE ASKED : 09/14/2020 ALCOHOL USE: YES. ALCOHOL SCREENING DID YOU HAVE A DRINK CONTAINING ALCOHOL IN THE PAST YEAR?YES HOW OFTEN DID YOU HAVE A DRINK CONTAINING ALCOHOL IN THE PAST YEAR?TWO TO FOUR TIMES A MONTH (2 POINTS) HOW MANY DRINKS DID YOU HAVE ON A TYPICAL DAY WHEN YOU WERE DRINKING IN THE PAST YEAR?5 OR 6 (2 POINTS) POINTS4 INTERPRETATIONPOSITIVE RECREATIONAL DRUG USE DRUG USE?YES HOW OFTEN AND HOW MUCH? ADMITS TO SMALL AMOUNT OF MARIJUANA USE RECENTLY IT BECAME LEGAL RECENTLY. CAFFEINE CAFFEINE USE?YES HOW OFTEN AND HOW MUCH? 1-2 CUPS PER DAY SY[place]GOGUE SYNAGOGUE NO BAHAI BELIEFS THAT WOULD IMPACT HEALTH CARE. LANGUAGE LANGUAGES SPOKEN:AMHARIC LEARNING BARRIERS / SPECIAL NEEDS CHANGE FROM LAST VISIT?NO BARRIERS TO LEARNING?NO HEARING IMPAIRED?NO VISION IMPAIRED?YES :CORRECTIVE LENSES COGNITIVELY IMPAIRED?NO READINESS TO LEARN?YES LEARNING PREFERENCES?NO LEARNING CAPABILITIES PRESENT?YES EMOTIONAL BARRIERS?NO SPECIAL DEVICES?YES :CANE NEEDED FACTORY HELPER NEEDED?NO TODAY'S VISITNOTES FROM 0-10, WHAT LEVEL IS YOUR PAIN TODAY?6 - PFS REFERRAL NEEDED?NO CLERGY REFERRAL NEEDED?NO PUBLIC HEALTH REFERRAL NEEDED?NO WAS THE PROVIDER NOTIFIED OF ANY PERTINENT INFO?YES HAS THE PATIENT BEEN EDUCATED REGARDING HIS/HER PLAN OF CARE?YES PLEASE DOCUMENT ANY ADDTIONAL DETAILS. LUMBAR EPIDURAL HAS THE PATIENT BEEN EDUCATED REGARDING PAIN, THE RISK FOR PAIN, THE IMPORTANCE OF EFFECTIVE PAIN MANAGEMENT, AND THE PAIN ASSESSMENT PROCESS?YES ADVANCE DIRECTIVE ADVANCE DIRECTIVE DISCUSSED WITH PATIENT:YES DECLINED HCP AND ASSISTANCE WITH FORM REVIEW OF SYSTEMS CONSTITUTIONAL: ANY RECENT FEVER NO . CHILLS NO . WEIGHT CHANGE OF UNKNOWN REASONS NO . GASTROENTEROLOGY: NEW UNEXPLAINABLE CHANGES IN BOWEL CONTROL NO . CONSTIPATION NO . GENITOURINARY: ANY NEW CHANGE IN BLADDER CONTROL? NO . NEUROLOGY: NEW ONSET DIZZINESS OR NEUROLOGICAL CHANGES NOT MENTIONED NO . NEW NUMBNESS OR PAIN PATTERNS NOT MENTIONED AND PERTINENT TO TODAY'S VISIT NO . CARDIOLOGY: NEW CHEST PRESSURE NO . PATIENT DENIES NO . RESPIRATORY: UNEXPLAINABLE COUGH NO . NEW SHORTNESS OF BREATH NO . VITAL SIGNS WT 196.0 LBS, WT-KG 88.91 KG, HT 73 IN, BMI 25.86 INDEX, BP 149/81 MM HG, HR 79 /MIN, RR 18 /MIN, TEMP 98.4 F, OXYGEN SAT % 93%, SAFE IN ENV? (Y/N) YES, [place] [id number], REVIEWED BY: [employer]. YECENIA RN. EXAMINATION GENERAL EXAMINATION: GENERALNO ACUTE DISTRESS, WELL NOURISHED AND HYDRATED. PSYCHAPPROPRIATE MOOD AND AFFECT . LUNGS:CLEAR TO AUSCULTATION BILATERALLY, NO WHEEZES, RHONCHI, RALES. HEART:NO MURMURS, REGULAR RATE AND RHYTHM. ASSESSMENTS INTERVERTEBRAL DISC DISORDERS WITH RADICULOPATHY, LUMBOSACRAL REGION - M51.17 TREATMENT INTERVERTEBRAL DISC DISORDERS WITH RADICULOPATHY, LUMBOSACRAL REGION NOTES: 65-YEAR-OLD MALE IN FOR CHRONIC PAIN FOLLOW-UP. GIVEN PRESENTING SYMPTOMS RECOMMEND CONTINUATION OF CURRENT MEDICATION REGIMEN WITH FOLLOW-UP IN 3 MONTHS. PATIENT HAS EXPRESSED UNDERSTANDING OF AND WAS IN AGREEMENT WITH TREATMENT PLAN. GIVEN TIME TO ASK QUESTIONS AND EXPRESS CONCERNS. ISTOP REGISTRY REVIEWED AND DEMONSTRATES COMPLLIANCE. (REF # [id number] ) BRINGS IN MEDICATIONS WHICH IS APPROPRIATE FOR WHAT WAS DISPENSED. RECENT URINE TOXICOLOGY REVIEWED. NO UNAUTHORIZED MEDICATIONS. NO ILLICIT SUBSTANCES AND PRESCRIBED MEDICATIONS WERE PRESENT. VISIT CODES [id number] OFFICE VISIT, EST PT., LEVEL 3. PROCEDURE CODES [id number] ESTABILISHED PATIENT [facility] CHARGE DISPOSITION & COMMUNICATION FOLLOW UP 3 MONTHS (REASON: BACK PAIN) ELECTRONICALLY SIGNED BY TERRI MONDRAGON ON 12/14/2020 AT 11:04 AM EDT DISCLAIMER : THIS IS A VISIT SUMMARY EXTRACTED FROM THE [employer] CHART. IT IS NOT A COPY OF THE [email or web address] PROGRESS NOTE. CALI
== END ==
LOC: M PAIN 10:45
PROVIDERS: ATTEND Family Medicine
DX: M51.17 Intervertebral disc disorders with radiculopathy, lumbosacral region (principal); G89.29 Other chronic pain; F17.200 Nicotine dependence, unspecified, uncomplicated; Z79.899 Other long term (current) drug therapy